=== PATIENT | female | born 1970 | race Caucasian/White ===

== ENCOUNTER 2016-09-29 10:41 | Outpatient (CLI) | payer BC ==
[2016-09-29 13:35] LABS: HEMOGLOBIN A1C 0.39 g/dL
[2016-09-29 13:37] LABS: BASOPHILS # (AUTO) 0.1 10^3/uL (0.0-0.1); BASOPHILS % (AUTO) 1.1 %; EOSINOPHILS # (AUTO) 0.2 10^3/uL (0.0-0.7); EOSINOPHILS % (AUTO) 2.7 %; HCT - HEMATOCRIT 34.9 % (37.0-47.0); HGB - HEMOGLOBIN 11.7 g/dL (12.0-16.0); LYMPHOCYTES % (AUTO) 35.4 %; MEAN CORPUSCULAR HEMOGLOBIN 27.8 pg (27.0-31.0); MEAN CORPUSCULAR HGB CONC 33.4 g/dL (32.0-36.0); MEAN CORPUSCULAR VOLUME 83.1 fL (81.0-99.0); MEAN PLATELET VOLUME 8.8 fL (7.9-10.8); MONOCYTES # (AUTO) 0.4 10^3/uL (0.0-1.0); MONOCYTES % (AUTO) 6.6 %; NEUTROPHILS # (AUTO) 3.1 10^3/uL (1.5-6.6); NEUTROPHILS % (AUTO) 54.2 %; NUCLEATED RED BLOOD CELLS AUTO 0.1 /100WBC; RED CELL DISTRIBUTION WIDTH 14.5 % (12.0-15.0); UNCORRECTED WHITE BLOOD COUNT 5.7 x10^3/uL; WHITE BLOOD COUNT 5.7 x10^3/uL (4.8-10.8)
[2016-09-29 13:50] LABS: ALBUMIN/GLOBULIN RATIO 1.7 (1.0-2.2); BILIRUBIN,TOTAL 0.7 mg/dL (0.2-1.0); BUN - BLOOD UREA NITROGEN 14 mg/dL (6-20); CALCIUM 9.1 mg/dL (8.5-10.3); CARBON DIOXIDE - CO2 27 mmol/L (21-32); CHLORIDE 105 mmol/L (101-111); CHOL/HDL RATIO 3.4 (<4.4); CHOLESTEROL 195 mg/dL; CREATININE 0.8 mg/dL (0.4-1.0); GFR - MDRD 78 (>89); GLUCOSE 90 mg/dL (70-100); HDL CHOLESTEROL 57 mg/dL; LDL/HDL RATIO 2.3 (<4.4); POTASSIUM 4.1 mmol/L (3.5-5.0); SODIUM 140 mmol/L (135-145); TOTAL PROTEIN 7.2 g/dL (6.7-8.2); TRIGLYCERIDES 45 mg/dL; VLDL CHOLESTEROL 9 mg/dL
== END 2016-09-29 10:42 | disposition home or self-care (01) ==
LOC: LAB.WCP 10:41
PROVIDERS: ATTEND Family Medicine
DX: Z00.00 Encounter for general adult medical examination without abnormal findings (principal)
CPT/HCPCS: 36415; 80053; 80061; 83036; 84443; 85025

== ENCOUNTER 2016-10-12 10:35 | Outpatient (CLI) | payer BC ==
--- NOTE | 2016-10-13 15:34 | Mammography Report ---
DIGITAL SCREENING MAMMOGRAM: 10/12/2016 CLINICAL INDICATION: A 45-year-old with history of late childbearing for screening. COMPARISON: 08/2014, 08/2013. TECHNIQUE: Routine CC and MLO projections were obtained of the breasts as well as bilateral laterall y exaggerated craniocaudal views. FINDINGS: Parenchymal tissue within both breasts is extremely dense, which lowers the sensitivity of mammography; however, there are no dominant masses, suspicious microcalcifications, or secondary sig ns of malignancy. In comparison to the previous studies, there are no significant changes. IMPRESSION: No mammographic evidence of malignancy. PLAN: Screening mammography is recommended annually. BI-RADS category 1 - negative. STANDARD QUALIFYING STATEMENTS 1. This examination was reviewed with the aid of Computed-Aided Detection (CAD). 2. A negative or benign imaging report should not delay biopsy if clinically suspicious findings are present. Consider surgical consultation if warranted. More than 5% of cancers are not identified by i maging. 3. Dense breasts may obscure an underlying neoplasm. JOB #: [id number] EXT JOB #:[id number]
== END 2016-10-12 10:36 | disposition home or self-care (01) ==
LOC: DI.N 10:35
PROVIDERS: ATTEND Family Medicine
DX: Z12.31 Encounter for screening mammogram for malignant neoplasm of breast (principal)
CPT/HCPCS: 77067

== ENCOUNTER 2019-01-12 08:00 | Outpatient (CLI) | payer BC ==
[2019-01-12 18:44] LABS: BASOPHILS # (AUTO) 0.1 10^3/uL (0.0-0.1); BASOPHILS % (AUTO) 1.5 %; EOSINOPHILS # (AUTO) 0.2 10^3/uL (0.0-0.7); EOSINOPHILS % (AUTO) 3.4 %; LYMPHOCYTES # (AUTO) 1.6 10^3/uL (1.5-3.5); LYMPHOCYTES % (AUTO) 29.5 %; MEAN CORPUSCULAR HEMOGLOBIN 21.5 pg (27.0-31.0); MEAN CORPUSCULAR HGB CONC 28.9 g/dL (32.0-36.0); MEAN CORPUSCULAR VOLUME 74.5 fL (81.0-99.0); MEAN PLATELET VOLUME 10.3 fL (7.9-10.8); MONOCYTES # (AUTO) 0.4 10^3/uL (0.0-1.0); MONOCYTES % (AUTO) 8.1 %; NEUTROPHILS % (AUTO) 57.1 %; PLT - PLATELET COUNT 464 10^3/uL (130-450); RED BLOOD COUNT 3.72 10^6/uL (4.20-5.40); RED CELL DISTRIBUTION WIDTH 17.4 % (12.0-15.0); WHITE BLOOD COUNT 5.3 x10^3/uL (4.8-10.8)
[2019-01-12 19:01] LABS: ALBUMIN 4.2 g/dL (3.2-5.5); ALBUMIN/GLOBULIN RATIO 1.4 (1.0-2.2); BILIRUBIN,TOTAL 0.6 mg/dL (0.2-1.0); CALCIUM 9.1 mg/dL (8.5-10.3); CREATININE 0.7 mg/dL (0.4-1.0); TOTAL PROTEIN 7.2 g/dL (6.7-8.2)
[2019-01-12 19:29] LABS: PLATELET ESTIMATE, MANUAL INCREASED (>450,000) (NORMAL); PLATELET MORPHOLOGY RARE GIANT PLATELETS (NORMAL)
[2019-01-12 19:39] LABS: FOLLICLE STIMULATING HORMONE 13.02 mIU/mL
== END 2019-01-12 23:59 | disposition home or self-care (01) ==
LOC: LAB.WCP 08:00
PROVIDERS: ATTEND Family Medicine
DX: N92.0 Excessive and frequent menstruation with regular cycle (principal)
CPT/HCPCS: 36415; 80053; 83001; 84443; 85025

== ENCOUNTER 2019-01-21 16:33 | Outpatient (CLI) | payer BC ==
--- NOTE | 2019-01-23 08:40 | Ultrasound Report ---
Reason: MENORRHAGIA Procedure Date: 01/21/2019 Accession Number: [id number] / [id number] Procedure: US - Pelvic w/Transvaginal CPT Code: FULL RESULT: EXAM: PELVIC ULTRASOUND EXAM DATE: 01/21/2019 06:09 PM. CLINICAL HISTORY: MENORRHAGIA. COMPARISON: None. TECHNIQUE: Realtime transabdominal pelvic scan performed to identify the uterus and adnexa and as an overview of other pelvic structures, followed by transvaginal scan to provide greater detail of the uterus and adnexa, with static image documentation. FINDINGS: Uterus: 11.6 x 6.1 x 8.3 cm, volume 306.0 cc. Anteverted position. Heterogeneous. Masses: Numerous masses. A left fundal subserosal lesion with calcifications measures 2.3 x 2.2 x 2.3 cm. A right fundal intramural lesion with cystic changes measures 1.0 x 1.2 x 1.3 cm. An anterior mid uterine intramural to submucosal lesion measuring 2.9 x 2.1 x 2.4 cm. Endometrium: 13 mm. Heterogeneous. Cervix: Nabothian cysts. Right Ovary: 2.6 x 1.3 x 0.9 cm, volume 1.6 cc. Normal echotexture and blood flow. Simple dominant follicle measuring 1.1 x 0.8 x 1.7 cm. Left Ovary: 2.3 x 1.5 x 2.3 cm, volume 4.3 cc. Normal echotexture and blood flow. Free Fluid: Small amount of fluid in the cul-de-sac, extending to the right, a nonspecific finding. Other: None. IMPRESSION: 1. Fibroid uterus. 2. Endometrial thickening; follow-up exam in about 6 weeks is recommended. 3. Small amount of free fluid. RADIA
== END 2019-01-21 16:34 | disposition home or self-care (01) ==
LOC: DI 16:33
PROVIDERS: ATTEND Family Medicine
DX: N92.0 Excessive and frequent menstruation with regular cycle (principal); D25.1 Intramural leiomyoma of uterus; D25.2 Subserosal leiomyoma of uterus; R93.89 Abnormal findings on diagnostic imaging of other specified body structures
CPT/HCPCS: 76830; 76856

== ENCOUNTER 2019-05-09 10:42 | Outpatient (CLI) | payer BC ==
[2019-05-09 11:17] LABS: BASOPHILS # (AUTO) 0.1 10^3/uL (0.0-0.1); BASOPHILS % (AUTO) 1.5 %; EOSINOPHILS # (AUTO) 0.2 10^3/uL (0.0-0.7); EOSINOPHILS % (AUTO) 3.5 %; LYMPHOCYTES # (AUTO) 1.8 10^3/uL (1.5-3.5); LYMPHOCYTES % (AUTO) 33.8 %; MEAN CORPUSCULAR HEMOGLOBIN 27.3 pg (27.0-31.0); MEAN CORPUSCULAR HGB CONC 31.2 g/dL (32.0-36.0); MEAN CORPUSCULAR VOLUME 87.5 fL (81.0-99.0); MEAN PLATELET VOLUME 10.1 fL (7.9-10.8); MONOCYTES # (AUTO) 0.4 10^3/uL (0.0-1.0); MONOCYTES % (AUTO) 7.8 %; NEUTROPHILS # (AUTO) 2.9 10^3/uL (1.5-6.6); PLT - PLATELET COUNT 370 10^3/uL (130-450); RED CELL DISTRIBUTION WIDTH 17.1 % (12.0-15.0); WHITE BLOOD COUNT 5.4 x10^3/uL (4.8-10.8)
[2019-05-09 11:18] LABS: HCG UR QUAL NEGATIVE
[2019-05-09 11:34] LABS: CREATININE 0.8 mg/dL (0.4-1.0)
== END 2019-05-09 10:43 | disposition home or self-care (01) ==
LOC: LAB 10:42
PROVIDERS: ATTEND Obstetrics & Gynecology
DX: Z01.812 Encounter for preprocedural laboratory examination (principal); D25.9 Leiomyoma of uterus, unspecified; D64.9 Anemia, unspecified
CPT/HCPCS: 36415; 80048; 81025; 85025; 86850; 86900; 86901; 86920

== ENCOUNTER 2019-05-10 09:59 | Day surgery (SDC) | payer BC ==
[2019-05-10] MEDS ORDERED: PROPOFOL 200 MG/20 ML VIAL IVP ONE (10:00)
[2019-05-10] MEDS ORDERED: LIDOCAINE-MPF 2% 5 ML VIAL IM ONE (10:00)
[2019-05-10] MEDS ORDERED: GLYCOPYRROLATE 1 MG/5 ML VIAL IVP ONE (10:00)
[2019-05-10] MEDS ORDERED: NEOSTIGMINE 1 MG/1 ML 10 ML MDV IVP ONE (10:00)
[2019-05-10] MEDS ORDERED: fentaNYL 250 MCG/5 ML VIAL IVP ONE (10:00)
[2019-05-10] MEDS ORDERED: HYDROmorphone 1 MG/ML SYRINGE IVP ONE (10:00)
[2019-05-10] MEDS ORDERED: MIDAZOLAM 2 MG/2 ML VIAL IVP ONE (10:00)
[2019-05-10] MEDS ORDERED: DEXAMETHASONE 4 MG/ML VIAL IVP ONE (10:00)
[2019-05-10] MEDS ORDERED: ROCURONIUM 50 MG/5 ML VIAL IVP ONE (10:00)
[2019-05-10] MEDS ORDERED: LACTATED RINGERS 1,000 ML IV ONE ×2 (10:13→15:11)
[2019-05-10] MEDS ORDERED: CEFAZOLIN SODIUM IN 0.9 % NACL 2 GM/100 ML BAG IV ONE (10:30)
--- NOTE | 2019-05-10 11:31 | ANESTHESIA ---
Pre-Anesthesia VS, & Labs - Diagnosis Fibroid uterus, anemia - Procedure LAVH with bilateral salpingectomy, cysto Vital Signs: Temp Pulse Resp BP Pulse Ox 36.6 C 68 12 146/98 H 100 05/10/19 10:20 05/10/19 10:20 05/10/19 10:20 05/10/19 10:20 05/10/19 10:20 Height 5 ft 6 in Weight (kg) 90.8 kg - NPO >8 hours - Is Patient ?: No - Lab Results Current Lab Results: Lab results reviewed: Yes Home Medications and Allergies Home Medications: Ambulatory Orders Albuterol Sulfate [Proair Hfa Inhaler] 1 - 2 puffs INH Q4H PRN 05/09/19 Ferrous Sulfate 325 mg PO BID 05/09/19 Zicam 1 ea PO DAILY 05/09/19 Albuterol Sulfate [Proair Hfa Inhaler] 1 - 2 puffs INH Q4H PRN 05/09/19 Ferrous Sulfate 325 mg PO BID 05/09/19 Zicam 1 ea PO DAILY 05/09/19 Allergies/Adverse Reactions: Allergies Allergy/AdvReac Type Severity Reaction Status Date / Time shellfish derived Allergy Anaphylaxis Verified 05/09/19 10:30 Anes History & Medical History - Anesthetic History Family history of Anesthesia Complications: Denies Family history of Malignant Hyperthermia: Denies - Medical History Cardiovascular: reports: None Pulmonary: reports: Asthma (last albuterol use was in january) Gastrointestinal: reports: None Urinary: reports: None Neuro: reports: None Musculoskeletal: reports: None Endocrine/Autoimmune: reports: None Blood Disorders: reports: Anemia (history of anemia) Skin: reports: Other Smoking Status: Never smoker Psychosocial: reports: No issues indicated - Surgical History Gynecologic: section Exam General: Alert, Oriented x3, Cooperative, No acute distress Dental: WNL Mouth Openin Fingerbreadth Neck Mobility: Normal Mallampati classification: II Thyromental Distance: greater than 6 cm Respiratory: Lungs clear, Normal breath sounds, No respiratory distress, No accessory muscle use Cardiovascular: Regular rate, Normal S1, Normal S2, No murmurs Mental/Cognitive Status: Alert/Oriented X3, Normal for patient Plan Anesthesia Type: General Consent for Procedure(s) Verified and Reviewed: Yes Code Status: Attempt Resuscitation ASA classification: 2-Mild systemic disease Is this case an emergency?: No
[2019-05-10] MEDS ORDERED: SCOPOLAMINE PATCH TOP ONE (11:43)
[2019-05-10] MEDS ORDERED: LIDOCAINE MPF 2%-EPI 1:200000 20 ML VIAL ONE (11:59)
[2019-05-10] MEDS ORDERED: BUPIVACAINE 0.5% PF 30 ML VIAL ONE (11:59)
[2019-05-10] MEDS ORDERED: LIDOCAINE 1%-EPI 1:100000 20 ML MDV SUBQ ONE ×2 (14:06)
[2019-05-10] MEDS ORDERED: BUPIVACAINE 0.5% PF 30 ML VIAL INFIL ONE ×2 (14:07)
[2019-05-10] MEDS ORDERED: ONDANSETRON 4 MG/2 ML VIAL IVP PRN (15:50)
--- NOTE | 2019-05-10 15:54 | OPERATIVE REPORT ---
Operative Report - General Procedure Date: 05/10/19 Planned Procedure: TLH with BS and cysto Pre-Op Diagnosis: menorrhagia, fibroid uterus Procedure Performed: TLH with BS and cysto Post Op Diagnosis: Same - Procedure Note Primary Surgeon: Felix Galindo MD Secondary Surgeon: Toyin Iglesias MD Anesthesia Provider: Tomás Burton CRNA Anesthesia Technique: General ET tube Pathology: Uterus with both ovaries Weight 280 IV Fluids (mL): 1,600 Estimated Blood Loss (mL): 100 Urine Output (mL): 700 Indications: menorrhagia with fibroid uterus Findings: Large 280 gm fibriod uterus Complications: None
[2019-05-10] MEDS ORDERED: KETOROLAC 15 MG/ML VIAL ONE (16:16)
[2019-05-10] MEDS: KETOROLAC 30 MG/ML VIAL IVP PRN ×2 (16:19→22:25)
[2019-05-10] MEDS ORDERED: ONDANSETRON 4 MG/2 ML VIAL ONE (16:21)
--- NOTE | 2019-05-10 18:32 | OPERATIVE REPORT ---
DATE OF SERVICE: 05/10/2019 Physician: Felix Galindo MD PREOPERATIVE DIAGNOSIS: Fibroid uterus, menorrhagia, history of anemia. POSTOPERATIVE DIAGNOSES: Fibroid uterus, menorrhagia, history of anemia. PROCEDURE: Total laparoscopic hysterectomy with bilateral salpingectomy and cystoscopy. SURGEON: Felix Galindo MD RETIREMENT MANAGER: Toyin Iglesias MD ANESTHESIA: Tomás Burton CRNA. ANESTHETIC: General via endotracheal tube. IV FLUIDS: 1600 mL URINE OUTPUT: 700 mL ESTIMATED BLOOD LOSS: 100 mL FINDINGS: Upon entering the abdominal cavity, there was evidence of an irregular large uterus. The tubes and ovaries appeared to be normal. A cystoscopy was performed at the end of the case, there wa s evidence of good urine flow through both ureteral jets. DESCRIPTION OF PROCEDURE: Following adequate endotracheal anesthesia, patient was placed in dorsal l ithotomy position in Hector stirrups. At this point, she was prepped and draped in the usual fashion. A pelvic examination was performed prior to this, at which time the uterus was noted to be irregula r contour. Roughly 12-14 week size with irregularities, particularly on the right cornual area. At this point, a timeout was performed, at which time the concerns were addressed, the fact that she had never had any children vaginally, and the concerns about removing the uterus through the vagina was reviewed. A speculum was placed in the vagina, cervix visualized, grasped with a single-tooth tenacu lum. The uterus was then sounded to 9 cm and then dilated up to 8 mm. A uterine manipulator was alize jong in the cervical canal. Care was to make sure that the ring extended all the way to the fornices. At this point, the carbon coater machine operator's gloves were changed. Stab wound was made in the subumbilical area. Following local anesthesia with 0.25% Marcaine with 1% lidocaine and epinephrine, a trocar was placed and with one pass. There was no evidence of any injury at site of insertion. Two additional ports were placed, both in the left and right lower quadrants. Following local anesthesia with 0.25% Lance ine, skin incision with a #11 blade and 5 mm ports were placed under the first pass. The uterus was inspected. The patient was placed in Trendelenburg. There was evidence of a cornual fibroid on the right hand side. There were also irregularities of contour suggestive of multiple fibroids. The kailee diego was enlarged also. The right fallopian tube was grasped and then utilizing the LigaSure was caut erized and transected all the way to the cornua. Then, the uteroovarian ligament was cauterized and transected, as well as the round ligament being cauterized and transected. The broad ligament was th en cauterized, transected and then opened, and the anterior leaf was brought down to the internal os of the cervix and then come fpc across the cervix. The posterior leaf was also cauterized and tr ansected. The uterine vessels were identified, cauterized and transected with LigaSure. At this edwar e, attention was turned to the left adnexa. The fallopian tube was grasped. The mesosalpinx was cau terized and transected with the LigaSure all the way to the cornu, and then the uteroovarian ligament was cauterized and transected, as well as the round ligament. The anterior leaf of the broad ligame nt was opened, carried down to the internal os of the cervix and then brought across the lower uterin e segment. The bladder had 200 mL of sterile saline inserted to try and help delineate the edges of the bladder. At this point, following assurance that this was not in the field, the bladder flap was then developed. The uterine vessels on the left hand side were identified, cauterized and transecte d. The anvil of the uterine manipulator was palpated, and then utilizing Harmonic scalpel the cervix was amputated from the apex of the vagina. Care was taken to try and stay as close to the cervix as possible to minimize any foreshortening of the vagina. At this point, the uterus was then grasped a nd brought down into the vagina. It was grasped with a single-tooth tenaculum and then with a double tooth tenaculum. Following some difficulty, it was brought down and a fibroid was noted in the righ t cornu. This was enucleated and at this point the uterus was able to be delivered with ease. An As epto bulb was then placed in the vagina to maintain a pneumoperitoneum. The pelvis was irrigated wit h sterile saline. There was no evidence of any bleeding. Care was taken to inspect both pedicles, a s well as the vagina. The vagina was then closed using an 0 V-Loc suture traversing all the way acro ss. Care was taken to try and avoid puncturing the bladder, but getting a large bite so that there w ould be decreased risk of this opening. This was traversed all the way across the apex of the vagina and then brought back. This was trimmed and then the area was inspected. No further bleeding was n oted. So at this point, the right lower quadrant port, which had been enlarged to fit a 12 mm trocar , was closed utilizing a Kranthi-Vane. At this point, a cystoscopy was performed and there was ev idence of good flow from both ureteral orifices. There was no evidence of any injury in the entire b ladder cavity. The incision was closed utilizing 4-0 Monocryl subcuticular and then Dermabond was pl aced. The patient tolerated the procedure well and was taken to recovery in stable condition. Throughout this procedure, Dr. Iglesias was galo to providing retraction, as well as dissection and ca uterization of vessels. She was galo to the performance of this operation. TD: 05/10/2019 16:07
[2019-05-10] MEDS: oxyCODONE 5 MG TABLET PO PRN ×2 (18:45→22:44)
[2019-05-10] MEDS ORDERED: polyethylene glycoL 3350 17 GM PACKET PO PRN (20:00)
[2019-05-11] MEDS ORDERED: SODIUM CHLORIDE FLUSH 0.9% 10 ML SYRINGE ONE (07:53)
[2019-05-11] MEDS: KETOROLAC 30 MG/ML VIAL IVP PRN (07:53)
[2019-05-11] MEDS: oxyCODONE 5 MG TABLET PO PRN (11:09)
[2019-05-11 11:12] VITALS: BP 115/58
== END 2019-05-11 11:30 | disposition home or self-care (01) ==
LOC: SDS 09:59 → MS3 16:50 → SDS 05-11 11:30
PROVIDERS: ATTEND Obstetrics & Gynecology
PROC: 0UT74ZZ Resection of Bilateral Fallopian Tubes, Percutaneous Endoscopic Approach (ICD-10-PCS; 2019-05-10)
PROC: 0UT94ZZ Resection of Uterus, Percutaneous Endoscopic Approach (ICD-10-PCS; principal; 2019-05-10 11:30)
DX: N92.0 Excessive and frequent menstruation with regular cycle (principal); D25.9 Leiomyoma of uterus, unspecified; D64.9 Anemia, unspecified; J45.909 Unspecified asthma, uncomplicated
CPT/HCPCS: 58573; A9270; J0690; J1170; J3010; J3490; J7120

== ENCOUNTER 2020-04-17 15:45 | Outpatient (CLI) | payer BC | END 2020-04-17 15:46 | disposition home or self-care (01) | LOC: LAB 15:45 | PROVIDERS: ATTEND Surgery | DX: Z01.812 Encounter for preprocedural laboratory examination (principal); C50.911 Malignant neoplasm of unspecified site of right female breast; Z20.828 Contact with and (suspected) exposure to other viral communicable diseases ==

== ENCOUNTER 2020-04-22 07:57 | Day surgery (SDC) | payer BC ==
[~2020-04-22 07:57] MED LIST: BUPIVACAINE 0.5%-EPI 1:200000 PF 30 ML VIAL ONE; LIDOCAINE 1% 50 ML MDV ONE; ceFAZolin 2 GM/50 ML 2 GM/50 ML BAG IV ONE
[2020-04-22] MEDS ORDERED: LACTATED RINGERS 1,000 ML IV ONE (08:19)
[2020-04-22] MEDS ORDERED: MORPHINE 2 MG/ML CARPUJECT IVP PRN (09:12)
[2020-04-22] MEDS ORDERED: NALOXONE 0.4 MG/ML VIAL IVP PRN (09:12)
[2020-04-22] MEDS ORDERED: METOCLOPRAMIDE 10 MG/2 ML VIAL IVP PRN (09:12)
[2020-04-22] MEDS ORDERED: fentaNYL 100 MCG/2 ML VIAL IVP PRN (09:12)
[2020-04-22] MEDS ORDERED: ONDANSETRON 4 MG/2 ML VIAL IVP PRN (09:12)
[2020-04-22] MEDS ORDERED: ATROPINE ABBOJECT 1 MG/10 ML SYRINGE IVP PRN (09:12)
[2020-04-22] MEDS ORDERED: HYDROmorphone 0.5 MG/0.5 ML SYRINGE IVP PRN (09:12)
[2020-04-22] MEDS ORDERED: ePHEDrine 50 MG/ML VIAL IVP PRN (09:12)
--- NOTE | 2020-04-22 09:12 | ANESTHESIA ---
Pre-Anesthesia VS, & Labs - Diagnosis right breast cancer - Procedure subclavian power portacath placement Vital Signs: Temp Pulse Resp BP Pulse Ox 36.6 C 80 16 142/94 H 100 04/22/20 08:10 04/22/20 08:10 04/22/20 08:10 04/22/20 08:10 04/22/20 08:10 Height: 5 ft 6 in Weight (kg): 89 kg Body Mass Index: 31.6 BMI Classification: Obese - NPO >8 hours - Is Patient ?: No - Lab Results Lab results reviewed: Yes Home Medications and Allergies Albuterol Sulfate [Proair Hfa Inhaler] 1 - 2 puffs INH Q4H PRN 05/09/19 Allergies/Adverse Reactions: Allergies Allergy/AdvReac Type Severity Reaction Status Date / Time shellfish derived Allergy Anaphylaxis Verified 05/09/19 10:30 Anes History & Medical History - Anesthetic History Anesthesia Complications: reports: No previous complications Family history of Anesthesia Complications: Denies Family history of Malignant Hyperthermia: Denies - Medical History Cardiovascular: reports: None Pulmonary: reports: Asthma Gastrointestinal: reports: None Urinary: reports: None Neuro: reports: None Musculoskeletal: reports: None Endocrine/Autoimmune: reports: None Blood Disorders: reports: Anemia (history of anemia) Skin: reports: Other Smoking Status: Never smoker - Surgical History Gynecologic: section Exam General: Alert, Oriented x3, Cooperative, No acute distress Dental: WNL Mouth Openin Fingerbreadth Respiratory: Lungs clear, Normal breath sounds, No respiratory distress, No accessory muscle use Cardiovascular: Regular rate, Normal S1, Normal S2, No murmurs Plan Anesthesia Type: MAC Consent for Procedure(s) Verified and Reviewed: Yes Code Status: Attempt Resuscitation ASA classification: 2-Mild systemic disease Is this case an emergency?: No
[2020-04-22] MEDS ORDERED: LACTATED RINGERS 1,000 ML IV SCH (10:00)
[2020-04-22] MEDS ORDERED: fentaNYL 100 MCG/2 ML VIAL ONE (10:18)
[2020-04-22] MEDS ORDERED: MIDAZOLAM 2 MG/2 ML VIAL ONE (10:18)
[2020-04-22] MEDS ORDERED: LIDOCAINE-MPF 2% 5 ML VIAL ONE (10:21)
[2020-04-22] MEDS ORDERED: PROPOFOL 200 MG/20 ML VIAL IVP ONE ×2 (10:21→10:57)
[2020-04-22] MEDS ORDERED: LIDOCAINE 1% 50 ML MDV SUBQ ONE (10:28)
[2020-04-22] MEDS ORDERED: BUPIVACAINE 0.5%-EPI 1:200000 PF 30 ML VIAL SUBQ ONE (10:29)
[2020-04-22] MEDS ORDERED: LACTATED RINGERS 500 ML IV ONE (10:53)
--- NOTE | 2020-04-22 10:53 | OPERATIVE REPORT ---
Operative Report - General Procedure Date: 04/22/20 Planned Procedure: Locally advanced right breast cancer Pre-Op Diagnosis: Locally advanced right breast cancer Procedure Performed: Left subclavian power port Post Op Diagnosis: Locally advance right breast cancer - Procedure Note Primary Surgeon: Maki Anesthesia Provider: LUC Chopra Anesthesia Technique: MAC Estimated Blood Loss (mL): 10 Indications: Facilitation of chemotherapy Findings: Port in good position in the superior vena cava Complications: None apparent - Other Other Information/Narrative: After obtaining informed consent, the patient is brought to the operating room and placed in supine position on the operating table. Following successful induction of sedation with monitored anesthesia care and appropriate padding of all bony prominences, the left chest and neck were prepped and draped in the standard surgical fashion. A timeout was held per scope protocol. All elements of the surgical safety checklist were followed before, during, and after the procedure. Following infiltration with local anesthetic to create a field block, the left subclavian vein was accessed in the deltopectoral groove. The J-wire was gently placed into the vein. Fluoroscopy was used to confirm the position of the wire and in the subclavian vein. We anesthetized the existing healed scar in the area around it for placement of the port itself. An incision was created here and carried down through the skin and subcutaneous tissue. A pocket was created with blunt dissection. The port tubing was attached to the tunneling device and passed from the access site of the vein into the pocket. It was trimmed to an appropriate length and the port attached. The port was sewn into place in the pocket. The dilator and introducer were then passed over the J-wire that was in the subclavian vein. The J-wire and dilator were removed leaving only the introducer. The tubing was then passed through the introducer and the introducer cracked and removed per assembler product's directions. The port was then checked for function and flushed and liane easily. Additional local anesthetic was applied to the chest wall. The port pocket was closed with interrupted Vicryl sutures and Monocryl stitches were placed in both skin incision sites. All sponge, needle, and instrument counts were correct at the conclusion of the case. Chest x-ray in the postanesthesia care unit revealed the port in good position in the superior vena cava without evidence of pneumothorax.
--- NOTE | 2020-04-22 11:29 | XRAY Report ---
PROCEDURE: OR Port-A-Cath INDICATIONS: PORT PLACEMENT TECHNIQUE: Single intraoperative image COMPARISON: None. FINDINGS: Single intraoperative images demonstrating guidewire projecting in the superior vena cava and below t he cavoatrial junction. Reviewed by: Arash Brown MD on 04/22/2020 11:27 AM [facility] Approved by: Arash Brown MD on 04/22/2020 11:27 AM [facility] Station ID: [id number]
--- NOTE | 2020-04-22 11:53 | XRAY Report ---
PROCEDURE: Chest for Line Placement INDICATIONS: Port TECHNIQUE: One view of the chest was acquired. COMPARISON: None FINDINGS: Surgical changes and devices: Left chest wall Port-A-Cath tip is in SVC.. Lungs and pleura: No pleural effusions or pneumothorax. Lungs are clear. Mediastinum: Mediastinal contours appear normal. Heart size is normal. Bones and chest wall: No suspicious bony lesions. Overlying soft tissues appear unremarkable. IMPRESSION: Left chest wall Port-A-Cath tip is in SVC. No acute cardiopulmonary pathology. Reviewed by: Eitan Izaguirre MD on 04/22/2020 11:52 AM [facility] Approved by: Eitan Izaguirre MD on 04/22/2020 11:52 AM [facility] Station ID: [id number]
[2020-04-22 12:35] VITALS: BP 122/72
--- NOTE | 2020-04-22 13:00 | ANESTHESIA POST OP EVALUATION ---
Anesthesia Post Eval - Post Anesthesia Eval Vitals: Last Vital Signs Temp 37.5 C 04/22/20 10:59 Pulse 80 04/22/20 12:00 Resp 16 04/22/20 12:00 BP 122/72 04/22/20 12:00 Pulse Ox 100 04/22/20 12:00 CV Function Including HR & BP: positive: Stable Pain Control: positive: Satisfactory Nausea & Vomiting: positive: Negative Mental Status: positive: Baseline Respiratory Status: Airway Patent Hydration Status: Satisfactory Anesthesia Complications: positive: None
== END 2020-04-22 07:58 | disposition home or self-care (01) ==
LOC: SDS 07:57
PROVIDERS: ATTEND Surgery
DX: C50.911 Malignant neoplasm of unspecified site of right female breast (principal); J45.909 Unspecified asthma, uncomplicated; E66.9 Obesity, unspecified; Z68.31 Body mass index [BMI] 31.0-31.9, adult
CPT/HCPCS: 36561; 71045; C1788; J0690; J7120

== ENCOUNTER 2020-04-30 13:32 | Outpatient (CLI) | payer BC ==
[2020-04-30] MEDS ORDERED: IOVERSOL 320 50 ML VIAL ONE (13:46)
[2020-04-30] MEDS ORDERED: IOVERSOL 320 100 ML VIAL IVP ONE ×2 (13:46→15:10)
[2020-04-30] MEDS ORDERED: IOVERSOL 320 50 ML VIAL PO ONE (15:10)
--- NOTE | 2020-04-30 15:39 | CT Report ---
PROCEDURE: CHEST W INDICATIONS: BREAST CA CONTRAST: IV CONTRAST: Optiray 320 ml: 100 PO CONTRAST: Optiray 320 ml50 TECHNIQUE: After the administration of intravenous contrast, 5 mm thick sections acquired from the pulmonary api mely to the posterior costophrenic angles. 7 mm thick coronal MIP reformats were acquired. For radia tion dose reduction, the following was used: automated exposure control, adjustment of mA and/or kV according to patient size. COMPARISON: None. FINDINGS: Image quality: Excellent. Lungs and pleura: No suspicious pulmonary nodule or mass. No pleural effusion or other significant pl eural finding. Mediastinum: Normal heart size. No threshold enlarged mediastinal or hilar lymph node by CT size crit eria. Left chest wall central venous port catheter terminates in the SVC. Bones and chest wall: Ill-defined hypoattenuating region within the right breast is suspicious for ma lignancy. Thickening of the skin and nipple areolar complex may represent involvement versus radiatio n or inflammatory change, versus postprocedural changes. Several partial enlarged right axillary lymp h nodes are suspicious for metastatic disease. There is also a right supraclavicular lymphadenopathy partially visualized. IMPRESSION: Ill-defined region of hyperattenuation in the right breast is consistent with a malignant mass. This would be better assessed with MRI, if not already performed. Thickened appearance of the right breast skin and nipple areolar complex is suspicious for malignant involvement, although other etiologies such as postprocedural or radiation change could cause a simil ar appearance. Right axillary and supraclavicular lymphadenopathy consistent with metastatic disease. Reviewed by: Celestino Mckenzie MD on 04/30/2020 3:38 PM PST Approved by: Celestino Mckenzie MD on 04/30/2020 3:38 PM PST Station ID: [id number]
--- NOTE | 2020-04-30 15:48 | CT Report ---
PROCEDURE: Abdomen/Pelvis W INDICATIONS: BREAST CA CONTRAST: IV CONTRAST: Optiray 320 ml: 100 PO CONTRAST: Optiray 320 ml50 TECHNIQUE: After the administration of intravenous contrast, 5 mm thick sections acquired from the diaphragms to the symphysis. 5 mm thick coronal and sagittal reformats were acquired. For radiation dose reducti on, the following was used: automated exposure control, adjustment of mA and/or kV according to ananth ent size. COMPARISON: None. FINDINGS: Image quality: Excellent. ABDOMEN: Lung bases: Lung bases are clear. Heart size is normal. Solid organs: Liver and spleen are normal in size and enhancement. Gallbladder is unremarkable. Bi liary system is non dilated. Pancreas enhances normally. No adrenal nodules. Kidneys demonstrate n ormal size and enhancement, without hydronephrosis. Peritoneum and bowel: Bowel loops demonstrate normal wall thickness and caliber. No free fluid or a ir. Nodes and vessels: No retroperitoneal or mesenteric adenopathy by size criteria. Aorta and inferior vena cava are normal in size. Miscellaneous: No ventral hernias. PELVIS: Genitourinary: Bladder wall thickness is normal. Miscellaneous: No inguinal hernias or adenopathy. Bones: No suspicious bony lesions. No vertebral body compression fractures. IMPRESSION: No evidence of metastatic disease in the abdomen or pelvis. Please see separately dictat ed report for CT of the chest for description of probable metastases in the chest. Reviewed by: Celestino Mckenzie MD on 04/30/2020 3:46 PM PST Approved by: Celestino Mckenzie MD on 04/30/2020 3:46 PM PST Station ID: [id number]
== END 2020-04-30 13:33 | disposition home or self-care (01) ==
LOC: DI 13:32
PROVIDERS: ATTEND Internal Medicine Hematology & Oncology
DX: C50.911 Malignant neoplasm of unspecified site of right female breast (principal); R59.0 Localized enlarged lymph nodes
CPT/HCPCS: 71260; 74177; Q9967

== ENCOUNTER 2020-05-06 08:38 | Outpatient (CLI) | payer BC ==
--- NOTE | 2020-05-14 13:32 | Nuclear Medicine Report ---
PROCEDURE: Bone Whole Body INDICATIONS: BREAST CA RADIOPHARMACEUTICAL: 27.3 mCi Tc-99m MDP IV. TECHNIQUE: Delayed whole-body scintigrams were obtained approximately 3-4 hours after intravenous injection of r adiotracer. Anterior and posterior views were acquired from vertex to feet. Additional left and rig ht oblique views of the skull and cervical spine were obtained. COMPARISON: None available. FINDINGS: Foci of increased uptake are noted in maxilla, most likely related to dental disease. No a bnormal uptake in skull, scapulae, clavicles, ribs, bony pelvis and visualized shafts of the long bon es. Mildly increased activity in the thoracic and lumbar spine are most likely degenerative in nature . Degenerative joint disease in multiple peripheral joints are noted involving shoulders, elbows and hips. IMPRESSION: No scintigraphic findings to suggest osseous metastasis. The result was given to Dr. Ronquillo's nurse Zuleika. Reviewed by: Michael Saldana MD on 05/14/2020 1:31 PM PST Approved by: Michael Saldana MD on 05/14/2020 1:31 PM PST Station ID: [id number]
== END 2020-05-06 08:39 | disposition home or self-care (01) ==
LOC: DI 08:38
PROVIDERS: ATTEND Internal Medicine Hematology & Oncology
DX: C50.911 Malignant neoplasm of unspecified site of right female breast (principal)
CPT/HCPCS: 78306

== ENCOUNTER 2020-07-18 07:22 | Outpatient (CLI) | payer BC | END 2020-07-18 07:23 | disposition home or self-care (01) | LOC: DI 07:22 | PROVIDERS: ATTEND Internal Medicine Hematology & Oncology | DX: C50.811 Malignant neoplasm of overlapping sites of right female breast (principal) | CPT/HCPCS: 93306 ==

== ENCOUNTER 2020-10-07 14:33 | Outpatient (CLI) | payer BC ==
--- NOTE | 2020-10-09 14:14 | Ultrasound Report ---
LIMITED ULTRASOUND OF RIGHT BREAST AND AXILLA: 10/07/2020 CLINICAL: Focal right breast pain and swelling. History right breast cancer. Comparison is made to exams dated: 04/15/2020 ultrasound biopsy, 04/15/2020 ultrasound biopsy, 04/15 ultrasound biopsy, 04/15/2020 mammogram, 04/03/2020 breast MRI, and 03/28/2020 ultrasound - [facility]. Color flow and real-time ultrasound of the right breast 8-12 o'clock, and axilla regions were perform ed on the areas of interest. Diffusely heterogeneous hypoechoic ill defined soft tissue redemonstrated in the upper outer quadrant of the right breast. There is a 2.6 cm x 1.6 cm x 2.7 cm oval mass with indistinct margins in the right breast at 11 o'oliver ck middle depth. This oval mass is hypoechoic. This abnormality appears slightly increased in size. Color flow imaging demonstrates that there is an adjacent vascularity. This likely corresponds to the previously biopsied mass. There also is a 1.2 cm x 0.8 cm x 1.1 cm oval mass with an indistinct margin in the right breast at 8 o'clock middle depth. This oval mass is hypoechoic. Color flow imaging demonstrates that there is vascularity present. Additionally, there are a few enlarged right axillary lymph nodes redemonstrated. These include a lym ph node with eccentric cortical thickening in the right axilla with the cortex measuring up to 0.8 cm . This lymph node displays a fatty hilum. This abnormality is increased in size. Color flow imagin g demonstrates that there is vascularity present. IMPRESSION: KNOWN BIOPSY PROVEN MALIGNANCY The 2.6 cm x 1.6 cm x 2.7 cm oval mass in the right breast at 11 o'clock middle depth is a known biop sy positive for malignancy. The 1.2 cm x 0.8 cm x 1.1 cm oval mass in the right breast at 8 o'clock middle depth likely correspon ds to additional areas of probable malignancy in the right breast seen on prior MRI. The lymph nodes with eccentric cortical thickening in the right axilla are consistent with known biop sy proven metastatic disease. The overall findings suggest progression of disease. However, evaluation of the extent of disease is limited on ultrasound. A followup-MRI is recommended to evaluate response to therapy if clinically in dicated. This exam was interpreted at Station ID: [id number]. Electronically Signed By: Darci Peters M.D. ddp/:10/09/2020 14:03:09 Ultrasound BI-RADS: 6 Known biopsy proven malignancy BI-RADS CATEGORY: (6) - 6 Unspecified - other recall n/a LATERALITY: (B)
== END 2020-10-07 14:34 | disposition home or self-care (01) ==
LOC: DI 14:33
PROVIDERS: ATTEND Internal Medicine Hematology & Oncology
DX: C50.811 Malignant neoplasm of overlapping sites of right female breast (principal); N63.13 Unspecified lump in the right breast, lower outer quadrant; R59.0 Localized enlarged lymph nodes

== ENCOUNTER 2020-10-22 07:43 | Outpatient (CLI) | payer BC ==
[2020-10-22] MEDS ORDERED: IOPAMIDOL-300 50 ML VIAL ONE (07:49)
[2020-10-22] MEDS ORDERED: IOVERSOL 320 100 ML VIAL IVP ONE ×2 (07:49→09:06)
[2020-10-22] MEDS ORDERED: IOPAMIDOL-300 50 ML VIAL PO ONE (09:06)
--- NOTE | 2020-10-22 09:28 | CT Report ---
PROCEDURE: CHEST W INDICATIONS: BREAST CA CONTRAST: IV CONTRAST: Optiray 320 ml: 100 PO CONTRAST: Isovue 300 ml50 TECHNIQUE: After the administration of intravenous contrast, 5 mm thick sections acquired from the pulmonary api mely to the posterior costophrenic angles. 7 mm thick coronal MIP reformats were acquired. For radia tion dose reduction, the following was used: automated exposure control, adjustment of mA and/or kV according to patient size. COMPARISON: Same day CT abdomen and pelvis. Right breast and axillary ultrasound 10/07/2020. CT chest 04/30/2020. Breast MRI 04/03/2020. FINDINGS: Image quality: Excellent. Lungs and pleura: No mass or suspicious pulmonary nodule. The lungs are unchanged. Left lower lobe p ulmonary nodule measuring 0.2 cm, (3/218), unchanged. No acute air space opacities. No pleural effus ions or pneumothorax. Central and peripheral airways are patent and normal in caliber. Mediastinum: Left-sided port with the catheter tip in the middle third of the SVC. Heart size is nor mal. No pericardial effusion. No mediastinal or hilar adenopathy by size criteria. Thoracic aorta and central pulmonary arteries are normal in size. Esophagus is normal in caliber. No hiatal hernia . Bones and chest wall: Heterogeneous enhancement of the right breast compared to the left. Right danna st masses are difficult to measure on CT. Right breast biopsy clips. Right breast skin thickening. Enlarged right axillary lymph nodes. For example: -Lateral node with biopsy clip with a short axis diameter of 0.8 cm, (2/19), previously 1.3 cm. -Superior-medial node measuring 1.2 cm, (2/13), previously 1.3 cm. -No internal mammary nodes seen. No enlarging nodes seen. No suspicious bony lesions. No vertebral body compression fractures. No axillary or supraclavicular adenopathy by size criteria. The thyroid is normal in size and there are no incidental findings. Abdomen: Visualized upper abdominal solid organs appear normal. Upper abdominal bowel loops are nor mal in caliber. IMPRESSION: 1. No worsening disease identified in the chest. 2. Heterogeneous right breast masses. 3. Right axillary adenopathy. One of the nodes appears decreased in size. Reviewed by: Lamberto Murray MD on 10/22/2020 9:27 AM PDT Approved by: Lamberto Murray MD on 10/22/2020 9:27 AM PDT Station ID: [id number]
--- NOTE | 2020-10-22 09:33 | CT Report ---
PROCEDURE: Abdomen/Pelvis W INDICATIONS: BREAST CA CONTRAST: IV CONTRAST: Optiray 320 ml: 100 PO CONTRAST: Isovue 300 ml50 TECHNIQUE: After the administration of oral and intravenous contrast, 5 mm thick sections acquired from the diap hragms to the symphysis. 5 mm thick coronal and sagittal reformats were acquired. For radiation dos e reduction, the following was used: automated exposure control, adjustment of mA and/or kV accordin g to patient size. COMPARISON: Same day CT chest. CT abdomen and pelvis 04/30/2020. FINDINGS: Image quality: Excellent. ABDOMEN: Lung bases: Lung bases are clear. Heart size is normal. Solid organs: Liver and spleen are normal in size and enhancement. No focal hepatic lesion. Gallblad ellen is unremarkable. Biliary system is non dilated. Pancreas enhances normally. No adrenal nodules . Kidneys demonstrate normal size and enhancement, without hydronephrosis. Peritoneum and bowel: Bowel loops demonstrate normal wall thickness and caliber. Somewhat prominent stool in the right and transverse colon. No free fluid or air. Nodes and vessels: No retroperitoneal or mesenteric adenopathy by size criteria. Aorta and inferior vena cava are normal in size. Miscellaneous: No ventral hernias. PELVIS: Genitourinary: Bladder is unremarkable. Uterus is absent. Miscellaneous: No inguinal hernias or adenopathy. Bones: No suspicious bony lesions. No vertebral body compression fractures. IMPRESSION: No metastatic disease identified in the abdomen or pelvis. Reviewed by: Lamberto Murray MD on 10/22/2020 9:32 AM PDT Approved by: Lamberto Murray MD on 10/22/2020 9:32 AM PDT Station ID: [id number]
== END 2020-10-22 07:44 | disposition home or self-care (01) ==
LOC: DI 07:43
PROVIDERS: ATTEND Internal Medicine Hematology & Oncology
DX: C50.811 Malignant neoplasm of overlapping sites of right female breast (principal)
CPT/HCPCS: 71260; 74177; Q9967

== ENCOUNTER 2020-10-24 10:00 | Outpatient (CLI) | payer BC | END 2020-10-24 23:59 | disposition home or self-care (01) | LOC: COV 10:00 | PROVIDERS: ATTEND Surgery | DX: Z01.812 Encounter for preprocedural laboratory examination (principal); C50.911 Malignant neoplasm of unspecified site of right female breast; Z20.822 Contact with and (suspected) exposure to COVID-19 ==

== ENCOUNTER 2020-10-28 11:27 | Day surgery (SDC) | payer BC ==
[~2020-10-28 11:27] MED LIST changes: -BUPIVACAINE 0.5%-EPI 1:200000 PF 30 ML VIAL ONE; -LIDOCAINE 1% 50 ML MDV ONE
[2020-10-28] MEDS ORDERED: LACTATED RINGERS 1,000 ML IV ONE ×2 (12:10→14:56)
[2020-10-28] MEDS ORDERED: ONDANSETRON 4 MG/2 ML VIAL IVP PRN ×2 (12:13→15:20)
[2020-10-28] MEDS ORDERED: MORPHINE 2 MG/ML CARPUJECT IVP PRN (12:13)
[2020-10-28] MEDS ORDERED: fentaNYL 100 MCG/2 ML VIAL IVP PRN (12:13)
[2020-10-28] MEDS ORDERED: ATROPINE ABBOJECT 1 MG/10 ML SYRINGE IVP PRN (12:13)
[2020-10-28] MEDS ORDERED: HYDROmorphone 0.5 MG/0.5 ML SYRINGE IVP PRN (12:13)
[2020-10-28] MEDS ORDERED: NALOXONE 0.4 MG/ML VIAL IVP PRN (12:13)
[2020-10-28] MEDS ORDERED: LIDOCAINE-MPF 2% 5 ML VIAL ONE (12:16)
[2020-10-28] MEDS ORDERED: PROPOFOL 200 MG/20 ML VIAL IVP ONE (12:16)
[2020-10-28] MEDS ORDERED: fentaNYL 100 MCG/2 ML VIAL ONE ×2 (12:16→13:41)
[2020-10-28] MEDS ORDERED: MIDAZOLAM 2 MG/2 ML VIAL ONE (12:16)
--- NOTE | 2020-10-28 12:19 | ANESTHESIA ---
Pre-Anesthesia VS, & Labs - Diagnosis right breast cancer - Procedure right simple mastectomy with axillary node dissection Vital Signs: Temp Pulse Resp BP Pulse Ox 36.6 C 64 16 122/84 H 98 10/28/20 11:35 10/28/20 11:35 10/28/20 11:35 10/28/20 11:35 10/28/20 11:35 Height: 5 ft 7 in Weight (kg): 87 kg Body Mass Index: 30.0 BMI Classification: Obese - NPO >8 hours - Is Patient ?: No Home Medications and Allergies Active Medications Atropine Sulfate (Atropine Abboject 1 Mg/10 Ml Syringe) 0.5 mg IVP Q5M PRN PRN Reason: Bradycardia Stop: 10/29/20 12:13 Fentanyl (Fentanyl 100 Mcg/2 Ml Vial) 25 - 50 mcg IVP Q5M PRN PRN Reason: BREAKTHROUGH PAIN (2nd Choice) Stop: 10/29/20 12:13 Hydromorphone HCl (Hydromorphone 0.5 Mg/0.5 Ml Syringe) 0.2 - 0.6 mg IVP Q5M PRN PRN Reason: PAIN (First Choice) Stop: 10/29/20 12:13 Lactated Ringer's (Lr) 1,000 mls @ 100 mls/hr IV .Q10H VERNELL Stop: 10/28/20 22:59 Morphine Sulfate (Morphine 2 Mg/Ml Carpuject) 2 - 4 mg IVP Q5M PRN PRN Reason: PAIN (3rd Choice) Stop: 10/29/20 12:13 Naloxone HCl (Naloxone 0.4 Mg/Ml Vial) 0.1 mg IVP Q2M PRN PRN Reason: RESP RATE <8 Stop: 10/29/20 12:13 Ondansetron HCl (Ondansetron 4 Mg/2 Ml Vial) 4 mg IVP ONCE PRN PRN Reason: N/V (First Choice) Stop: 10/29/20 12:13 Albuterol Sulfate [Proair Hfa Inhaler] 1 - 2 puffs INH Q4H PRN 05/09/19 Allergies/Adverse Reactions: Allergies Allergy/AdvReac Type Severity Reaction Status Date / Time shellfish derived Allergy Anaphylaxis Verified 09/24/20 16:42 Anes History & Medical History - Anesthetic History Anesthesia Complications: reports: No previous complications - Medical History Cardiovascular: reports: None Pulmonary: reports: Asthma (last use 3 months ago) Gastrointestinal: reports: None Urinary: reports: None Neuro: reports: None Musculoskeletal: reports: None Endocrine/Autoimmune: reports: None Blood Disorders: reports: Anemia Skin: reports: None Smoking Status: Never smoker Psychosocial: reports: No issues indicated History of Cancer?: Yes (last chemo 09/2020) - Surgical History General: reports: Other Gynecologic: reports: section, Hysterectomy Exam General: Alert, Oriented x3, Cooperative, No acute distress Dental: WNL Mouth Openin Fingerbreadth Neck Mobility: Normal Mallampati classification: II Thyromental Distance: 4-6 cm Respiratory: Lungs clear, Normal breath sounds, No respiratory distress, No accessory muscle use Cardiovascular: Regular rate, Normal S1, Normal S2, No murmurs Mental/Cognitive Status: Alert/Oriented X3, Normal for patient Plan Anesthesia Type: General Consent for Procedure(s) Verified and Reviewed: Yes Code Status: Attempt Resuscitation ASA classification: 3-Severe systemic disease Is this case an emergency?: No
[2020-10-28] MEDS ORDERED: BUPIVACAINE 0.5%-EPI 1:200000 PF 30 ML VIAL ONE (12:20)
[2020-10-28] MEDS ORDERED: LIDOCAINE-MPF 1% 30 ML VIAL ONE (12:20)
[2020-10-28] MEDS ORDERED: HYDROmorphone 1 MG/ML CARPUJECT ONE ×3 (12:56→15:13)
[2020-10-28] MEDS ORDERED: BUPIVACAINE 0.5% PF 30 ML VIAL INFIL ONE (12:59)
[2020-10-28] MEDS ORDERED: LIDOCAINE 2%-EPI 1:100000 20 ML MDV SUBQ ONE (12:59)
[2020-10-28] MEDS ORDERED: LACTATED RINGERS 1,000 ML IV SCH (13:00)
[2020-10-28] MEDS ORDERED: DEXAMETHASONE 4 MG/ML VIAL ONE (13:06)
--- NOTE | 2020-10-28 15:05 | OPERATIVE REPORT ---
Operative Report - General Planned Procedure: Right mastectomy and axillary node dissection Pre-Op Diagnosis: Locally advance right breast cancer Procedure Performed: Right mastectomy and axillary node dissection Post Op Diagnosis: Locally advance right breast cancer - Procedure Note Primary Surgeon: Maki Anesthesia Provider: LUC Mcgee; LUC Cooper Anesthesia Technique: General LMA Pathology: Right breast and axillary contents to pathology Estimated Blood Loss (mL): 230 Drain/Tube Type: Emiliano drain (19 [place] in the inframammary pocket) Indications: Locally advanced right breast cancer that has not responded favorably to neoadjuvant chemotherapy Findings: 1. Mass adherent to the pectoralis fascia superiorly 2. Significant venous congestion and edema throughout the breast 3. Large firm nodes within the axilla extending beyond level 4 and the limit of dissection. Complications: None apparent - Other Other Information/Narrative: After obtaining informed consent, the patient is brought to the operating room and placed in supine position on the operating table. Following successful induction of sedation with monitored anesthesia care and appropriate padding of all bony prominences, bilateral chest and neck were prepped and draped in the standard surgical fashion. A timeout was held per scope protocol. All elements of the surgical safety checklist were followed before, during, and after the procedure. We began the procedure by infiltrating half percent Marcaine plain throughout the subcutaneous tissue of the breast and beneath the pectoralis major and minor muscles As well as portions of the serratus anterior. This was to done to provide a field block. An incision was fashioned elliptically. This incision was then completed with a 10 blade scalpel. It was carried through the skin and subcutaneous tissue. Traction and countertraction were then used to divide the underlying breast tissue from the overlying dermis from the level of the incision to the clavicle superiorly, medially to the sternum, inferiorly to the inframammary fold, and lateral to the posterior axillary line. Dissection was continued into the right axilla to include the remainder of the axillary node packet. Limits of dissection in the axilla where the chest wall medially, the axillary vein superiorly, the skin of the axilla laterally, and the dissection and blended into the dissection of the axillary tail inferiorly. All palpable lymph nodes were taken from level 1 and 2 and palpably enlarged nodes from level 3. [place] tissue consistent with malignancy was noted on and around the axillary vein. This tissue was taken as close to the vein wall as possible without damage. Additional enlarged and abnormal nodes were palpabed at level 4 and superiorly in the region of the brachial plexus. We did not attempt to remove these nodes as it would not benefit the patient and has potential to cuase harm. Once a circumferential dissection had been obtained, the breast was removed in a medial to lateral fashion to include the remaining portion of the right axillary node packet. All perforators were addressed with sutures or with cautery prior to division. The breast was then marked with a short stitch superior and a long stitch lateral. The wound was irrigated with warm water and aspirated free of all fluid and particulate matter. It was checked once again for hemostasis and touched up in just a couple of places with cautery. A 19 [place] Emiliano drain was placed in the inframammary pocket and brought out inferior medially. It was sewn into place. The skin edges were then closed in an interrupted fashion with Vicryl suture and the Endo Close device was used to approximate the skin. The wound was cleaned and the Sue wound management device was then placed to the overlying skin and hooked up to suction. A good seal was obtained. All sponge, needle, and instrument counts were correct at the conclusion of the case. The patient was allowed to wake from anesthesia without difficulty and taken to the postanesthesia care unit in good condition.
[2020-10-28] MEDS ORDERED: oxyCODONE 5 MG TABLET PO PRN (15:20)
[2020-10-28] MEDS ORDERED: IBUPROFEN 600 MG TABLET PO PRN (15:20)
[2020-10-28] MEDS ORDERED: ACETAMINOPHEN 325 MG TABLET PO PRN (15:20)
[2020-10-28 16:27] VITALS: BP 145/87
--- NOTE | 2020-10-28 16:58 | ANESTHESIA POST OP EVALUATION ---
Anesthesia Post Eval - Post Anesthesia Eval Vitals: Last Vital Signs Temp 37.4 C 10/28/20 16:26 Pulse 74 10/28/20 16:26 Resp 14 10/28/20 16:26 BP 145/87 H 10/28/20 16:26 Pulse Ox 100 10/28/20 16:26 CV Function Including HR & BP: Stable Pain Control: Satisfactory Nausea & Vomiting: Negative Mental Status: Baseline Respiratory Status: Airway Patent Hydration Status: Satisfactory Anesthesia Complications: None
== END 2020-10-28 11:28 | disposition home or self-care (01) ==
LOC: SDS 11:27
PROVIDERS: ATTEND Surgery
PROC: 07B50ZZ Excision of Right Axillary Lymphatic, Open Approach (ICD-10-PCS; 2020-10-28)
PROC: 0HTT0ZZ Resection of Right Breast, Open Approach (ICD-10-PCS; principal; 2020-10-28 12:30)
DX: C50.911 Malignant neoplasm of unspecified site of right female breast (principal); E66.9 Obesity, unspecified; Z68.30 Body mass index [BMI] 30.0-30.9, adult; Z92.21 Personal history of antineoplastic chemotherapy
CPT/HCPCS: 19307; J0690; J1170; J7120; 88309; 88341; 88342; 88360

== ENCOUNTER 2020-12-30 07:33 | Outpatient (CLI) | payer BC ==
[2020-12-30] MEDS ORDERED: GADOBUTROL 15 MMOL/15 ML VIAL ONE (07:41)
--- NOTE | 2020-12-30 09:12 | MRI Report ---
PROCEDURE: Brain W/WO INDICATIONS: BREAST CA CONTRAST: IV CONTRAST: Gadavist ml: 8.7 TECHNIQUE: Noncontrast axial T1 spin echo, axial T2 fast spin echo, sagittal and axial FLAIR, coronal T2 fast sp in echo, axial gradient echo, axial diffusion and ADC through the brain. After the administration of contrast, axial and coronal T1 spin echo with fat saturation through the brain. COMPARISON: None. FINDINGS: Image quality: Excellent. CSF spaces: Basal cisterns are patent. No extra-axial fluid collections. Ventricles are normal in size and shape. Brain: No midline shift. No intracranial bleeds or masses. No abnormal intracranial enhancement. There is cerebral volume loss for age. There is periventricular white matter chronic small vessel is chemic change. The brainstem appears normal. Diffusion-weighted images demonstrate no acute ischemi c insults. No chronic ischemic insults. Normal intravascular flow voids are present. Skull and face: Calvarial marrow is normal in signal. Orbits appear normal. Sinuses: Mucosal thickening, right maxillary sinus. Other paranasal sinuses and mastoids are clear. IMPRESSION: 1. Chronic right maxillary sinusitis. 2. Otherwise unremarkable brain MRI with and without contrast. No evidence of acute stroke, hemorrhag e, or mass. Reviewed by: Miguel Ángel Livingston MD on 12/30/2020 9:11 AM PDT Approved by: Miguel Ángel Livingston MD on 12/30/2020 9:11 AM PDT Station ID: [id number]
[2020-12-30] MEDS ORDERED: GADOBUTROL 15 MMOL/15 ML VIAL IVP ONE (11:27)
== END 2020-12-30 07:34 | disposition home or self-care (01) ==
LOC: DI 07:33
PROVIDERS: ATTEND Internal Medicine Hematology & Oncology
DX: C50.919 Malignant neoplasm of unspecified site of unspecified female breast (principal); J32.0 Chronic maxillary sinusitis
CPT/HCPCS: 70553; A9585

== ENCOUNTER 2021-01-30 07:47 | Outpatient (CLI) | payer BC ==
[2021-01-30] MEDS ORDERED: IOVERSOL 320 50 ML VIAL ONE (07:58)
[2021-01-30] MEDS ORDERED: IOVERSOL 320 100 ML VIAL IVP ONE ×2 (07:58→09:21)
[2021-01-30] MEDS ORDERED: IOVERSOL 320 50 ML VIAL PO ONE (09:21)
--- NOTE | 2021-01-30 10:23 | CT Report ---
PROCEDURE: CHEST W INDICATIONS: BREAST CA CONTRAST: IV CONTRAST: Optiray 320 ml: 100 PO CONTRAST: Optiray 320 ml50 TECHNIQUE: After the administration of intravenous contrast, 1 mm axial images were acquired from the pulmonary apices through the posterior costophrenic angles. Axial 5 mm soft tissue kernel reconstructions were performed as well as 8 mm axial MIP and coronal and sagittal 5 mm reformations. For radiation dose reduction, the following was used: automated exposure control, adjustment of mA and/or kV according to patient size. COMPARISON: Same day CT abdomen and pelvis. CT chest 10/22/2020, 04/30/2020. FINDINGS: Image quality: Excellent. Lungs and pleura: No acute air space opacities. No new or enlarging pulmonary nodules. A few pulmona ry nodules measuring 0.3 cm or less. For example left lower lobe 0.2 cm, (3/208), unchanged. No pleu ral effusions or pneumothorax. Central and peripheral airways are patent and normal in caliber. Mediastinum: Heart size is normal. No pericardial effusion. No mediastinal or hilar adenopathy by size criteria. Thoracic aorta and central pulmonary arteries are normal in size. Esophagus is gayatri l in caliber. No hiatal hernia. Bones and chest wall: No suspicious bony lesions. No vertebral body compression fractures. The thyr oid is normal in size and there are no incidental findings. Interval right mastectomy and right axill marialuisa node dissection. No enlarged lymph nodes identified. Small right retropectoral nodes are unchange d. No internal mammary nodes identified. No left axillary adenopathy. No supra clavicular adenopathy. Abdomen: Visualized upper abdominal solid organs appear normal. Upper abdominal bowel loops are nor mal in caliber. IMPRESSION: 1. No metastatic disease identified in the chest. 2. Interval right mastectomy. 3. Right axillary node dissection. No enlarged nodes. Small right retropectoral nodes are unchanged. Reviewed by: Lamberto Murray MD on 01/30/2021 10:21 AM PDT Approved by: Lamberto Murray MD on 01/30/2021 10:21 AM PDT Station ID: [id number]
--- NOTE | 2021-01-30 10:32 | CT Report ---
PROCEDURE: Abdomen/Pelvis W INDICATIONS: BREAST CA CONTRAST: IV CONTRAST: Optiray 320 ml: 100 PO CONTRAST: Optiray 320 ml50 TECHNIQUE: After the administration of oral and intravenous contrast, 5 mm thick sections acquired from the diap hragms to the symphysis. 5 mm thick coronal and sagittal reformats were acquired. For radiation dos e reduction, the following was used: automated exposure control, adjustment of mA and/or kV accordin g to patient size. COMPARISON: Same day CT chest. CT abdomen and pelvis 10/22/2020, 04/30/2020. FINDINGS: Image quality: Excellent. ABDOMEN: Lung bases: Lung bases are clear. Heart size is normal. Solid organs: Liver and spleen are normal in size and enhancement. No focal lesion. Gallbladder is p rominent in size. No calcified gallstones. Biliary system is non dilated. Pancreas enhances normall y. No adrenal nodules. Kidneys demonstrate normal size and enhancement, without hydronephrosis. Peritoneum and bowel: Bowel loops demonstrate normal wall thickness and caliber. Somewhat prominent stool in the proximal colon. No free fluid or air. Nodes and vessels: No retroperitoneal or mesenteric adenopathy by size criteria. Aorta and inferior vena cava are normal in size. Miscellaneous: No ventral hernias. PELVIS: Genitourinary: Bladder is decompressed. Uterus is absent. Miscellaneous: No inguinal hernias or adenopathy. Bones: No suspicious bony lesions. No vertebral body compression fractures. IMPRESSION: No metastatic disease identified in the abdomen or pelvis. Reviewed by: Lamberto Murray MD on 01/30/2021 10:30 AM PDT Approved by: Lamberto Murray MD on 01/30/2021 10:30 AM PDT Station ID: [id number]
== END 2021-01-30 07:48 | disposition home or self-care (01) ==
LOC: DI 07:47
PROVIDERS: ATTEND Internal Medicine Hematology & Oncology
DX: C50.919 Malignant neoplasm of unspecified site of unspecified female breast (principal); Z90.11 Acquired absence of right breast and nipple
CPT/HCPCS: 71260; 74177; Q9967

== ENCOUNTER 2021-04-16 11:48 | Emergency (ER) | payer BC ==
--- NOTE | 2021-04-16 12:21 | ED Physician Documentation ---
History of Present Illness - Stated complaint Stated Complaint: ABD SWELLING - Chief complaint Chief Complaint: Abd Pain - History obtained from History obtained from: Patient - History of Present Illness Timing: Today Pain level max: 4 Pain level now: 3 - Additonal information Additional information: 50-year-old female with a history of breast cancer who presents to the emergency department with increasing abdominal pain. She had been on Xeloda at home but had increasing liver function test so this was stopped about a week ago. She describes the feeling as pressure and feels like her stomach is going to "burst". No vomiting. No diarrhea. Has had intermittent constipation. She is scheduled for a CT of the abdomen pelvis in April. No urinary symptoms. No blood in the stool. No fevers. No chills. Nothing seems to make it better. Worse with lying down and seems to be worse at night. 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 - Present Medications Home Medications: Ambulatory Orders Medication Instructions Recorded Confirmed Albuterol Sulfate [Proair Hfa 1 - 2 puffs INH Q4H PRN 05/09/19 04/08/21 Inhaler] Lidocaine/Prilocain 2.5% Cream 5 applic TOP BID #1 tube 04/22/20 04/08/21 [Emla 2.5% Cream] Ondansetron Odt [Zofran Odt] 4 mg TL Q6H PRN #20 tablet 10/28/20 04/08/21 oxyCODONE [Roxicodone] 5 mg PO Q4H PRN #30 tablet 10/28/20 04/08/21 Capecitabine [Xeloda] 2,500 mg PO DAILY 11/14/20 04/08/21 Oxycodone HCl [Roxicodone] 5 - 10 mg PO Q6H PRN #20 tablet 04/16/21 - Allergies Allergies/Adverse Reactions: Allergies Allergy/AdvReac Type Severity Reaction Status Date / Time shellfish derived Allergy Anaphylaxis Verified 04/16/21 12:02 - Social History Smoking Status: Never smoker PD ED PE NORMAL - Vitals Vital signs reviewed: Yes - General General: Alert and oriented X 3, No acute distress - HEENT HEENT: Moist mucous membranes - Neck Neck: Supple, no meningeal sign - Cardiac Cardiac: RRR - Respiratory Respiratory: No respiratory distress, Clear bilaterally - Abdomen Abdomen: Soft, Non tender, Other (mild distention. Hepatomegaly present) - Derm Derm: Warm and dry - Extremities Extremities: No edema, No calf tenderness / cord - Neuro Neuro: Alert and oriented X 3 Results - Vitals Vitals: Vital Signs - 24 hr 04/16/21 04/16/21 04/16/21 11:59 14:02 15:07 Temperature 36.4 C L Heart Rate 112 H 95 104 H Respiratory 20 20 17 Rate Blood Pressure 151/95 H 136/93 H 145/79 H O2 Saturation 96 97 99 Oxygen O2 Source Room air - Labs Labs: Laboratory Tests 04/16/21 04/16/21 04/16/21 13:15 13:15 13:15 WBC 6.2 RBC 3.28 L Hgb 12.4 Hct 36.7 L MCV 111.9 H MCH 37.8 H MCHC 33.8 RDW 17.1 H Plt Count 86 L MPV 10.7 Neut # (Auto) 4.9 Lymph # (Auto) 0.7 L [place] # (Auto) 0.6 Eos # (Auto) 0.0 Baso # (Auto) 0.0 Absolute Nucleated RBC 0.00 Nucleated RBC % 0.0 PT 17.9 H INR 1.6 H APTT 208.0 H* Sodium 134 L Potassium 4.3 Chloride 96 L Carbon Dioxide 14 L Anion Gap 24.0 H BUN 9 Creatinine 0.6 Estimated GFR (MDRD) 107 Glucose 72 Calcium 9.1 Total Bilirubin 2.2 H AST 145 H ALT 36 Alkaline Phosphatase 300 H Total Protein 6.5 L Albumin 3.5 Globulin 3.0 Albumin/Globulin Ratio 1.2 Lipase 23 - Rads (name of study) CT abdomen and pelvis Radiology: Final report received, EMP read contemporaneously, See rad report PD MEDICAL DECISION MAKING - ED course Complexity details: reviewed old records, reviewed results, re-evaluated patient, considered differential, d/w patient, d/w specification consultant ED course: 50-year-old female with known breast cancer. She is currently on maintenance therapy. She has multiple new ill-defined hepatic mass lesions, likely representing metastatic disease. There is some mild ascites as well. There is not enough ascites to obtain a sample for cytology. Patient is well-appearing, nontoxic. Afebrile. Reviewed lab results and CT findings with her oncologist, Dr. Ronquillo. She will follow up in the clinic with her for further care. Patient does have a mild metabolic acidosis as well. This will be rechecked with Dr. Ronquillo. I am prescribing a short course of short-acting opioid pain medication for this patient. 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 I have discussed that the opioids are for short term therapy only, and will not be refilled from the ED. patient counseled regarding signs and symptoms for which I believe and urgent re-evaluation would be necessary. Patient with good understanding of and agreement to plan and is comfortable going home at this time This document was made in part using voice recognition software. While efforts are made to proofread this document, sound alike and grammatical errors may occur. IMPRESSION: 1. Multiple new ill-defined hepatic mass lesions likely representing metastatic disease. Further characterization may be obtained with a liver protocol MRI if clinically indicated. 2. Nonspecific gallbladder wall thickening may reflect sequelae of liver synthetic malfunction but correlation is recommended clinically for possible cholecystitis. 3. Segmental colonic wall thickening involving the ascending, transverse, and descending colon suggestive of an infectious or inflammatory colitis versus portal colopathy. 4. Multiple mildly enlarged mesenteric and retroperitoneal lymph nodes suspicious for metastatic disease. Departure - Departure Disposition: 01 Home, Self Care Clinical Impression: Metastatic disease Qualifiers: Area of secondary neoplastic involvement: unspecified site Qualified Code(s): C79.9 - Secondary malignant neoplasm of unspecified site Ascites Qualifiers: Ascites type: malignant Qualified Code(s): R18.0 - Malignant ascites Condition: Good Instructions: ED Abdominal Pain Female Non-Specific Abdominal Pain Follow-Up: Zulma Ronquillo MD [Physician No Access] - Zulma Ronquillo MD [Provider Admit Priv/Credential] - Within 3 Days Prescriptions: Oxycodone HCl [Roxicodone] 5 - 10 mg PO Q6H PRN #20 tablet PRN Reason: Abdominal Pain Comments: It is important that you follow-up with Dr. Ronquillo for further care. I spoke with her today and she will schedule you for a biopsy. Unfortunately there is not enough fluid for us to take a sample of the fluid here today. Your CT results are below. Your prescription was sent to [facility] in [place] I am prescribing a short course of narcotic pain medication for you. These are potentially dangerous and addictive medications that should be used carefully. These medications may constipate you. Take an [id number]-tqq-xysnbeq stool softener (docusate) twice daily with plenty of water while taking these medications. If you go 24 hours without a bowel movement, take [id number]-[id number] miralax, per package instructions. Do not drink or drive while taking these medications. If you received narcotic or sedating medications while in the emergency department, do not drive for 24 hours. Store this medication in a safe, secure place and out of reach of children. It is a violation of federal law to give or sell this medication to another person or to use in a manner other than prescribed. The ED will not refill narcotic prescriptions, including prescriptions lost or stolen. To dispose of unwanted medications: 1. [facility] [address] in [place] has a medication drop box. They accept prescription medications (in pill form) Wednesday through Wednesday 9:00 a.m. to 5:00 p.m. 2. [facility] [employer] [facility] accepts prescription medications (in pill form only) for disposal year round. Call for more information. 3. Contact the [facility] for the next [facility] sponsored prescription drug collection event. , [phone], or [phone]; ABDOMEN: Lung bases: There is mild scarring and atelectasis in the lung bases. Heart size is normal. There is a small hiatal hernia. The visualized chest wall demonstrates surgical absence of the right breast. Solid organs: There is heterogeneous enhancement throughout the liver with a few peripherally enhancing hypoattenuating mass lesions which are new compared to the prior studies. These include a subcapsular mass anteriorly within segment 8 of the right hepatic lobe measuring approximately 3.0 x 2.1 cm in transverse dimension on series 3 image 13. No special service representative mass posteriorly in the right hepatic lobe in segment 6 measures approximately 3.2 x 2.1 cm on series 3 image 33. An ill-defined infiltrative hypoattenuating mass is also demonstrated inferiorly in segment 6 with indistinct margins. The findings likely represent metastatic disease. The gallbladder is nondistended. There is nonspecific gallbladder wall thickening and enhancement. Biliary system is non dilated. Pancreas enhances normally. No adrenal nodules. Kidneys demonstr ate normal size and enhancement, without hydronephrosis. Peritoneum and bowel: The stomach and small bowel loops demonstrate normal wall thickness and caliber. There is segmental bowel wall thickening involving the ascending, transverse, and proximal descending colon consistent with colitis. There is a moderate amount of free fluid within the abdomen and pelvis. No free air. No loculated fluid collections to suggest an abscess. Nodes and vessels: Multiple prominent mesenteric and retroperitoneal lymph nodes are demonstrated including a special service representative left para-aortic retroperitoneal node measuring up to 1.3 cm on series 3 image 33. A special service representative aortocaval node measures up to 1.2 cm on series 3 image 42. Aorta and inferior vena cava are normal in size. Miscellaneous: No ventral hernias. PELVIS: Genitourinary: Bladder wall thickness is normal. Miscellaneous: No inguinal hernias or adenopathy. Bones: No suspicious bony lesions. No vertebral body compression fractures. IMPRESSION: 1. Multiple new ill-defined hepatic mass lesions likely representing metastatic disease. Further characterization may be obtained with a liver protocol MRI if clinically indicated. 2. Nonspecific gallbladder wall thickening may reflect sequelae of liver synthetic malfunction but correlation is recommended clinically for possible cholecystitis. 3. Segmental colonic wall thickening involving the ascending, transverse, and descending colon suggestive of an infectious or inflammatory colitis versus portal colopathy. 4. Multiple mildly enlarged mesenteric and retroperitoneal lymph nodes suspicious for metastatic disease. Discharge Date/Time: 04/16/21 15:07
[2021-04-16] MEDS ORDERED: IOVERSOL 320 100 ML VIAL IVP ONE ×2 (12:28→18:50)
[2021-04-16] MEDS ORDERED: IOPAMIDOL-300 50 ML VIAL ONE (12:29)
[2021-04-16 13:22] LABS: BASOPHILS % (AUTO) 0.5 %; EOSINOPHILS % (AUTO) 0.5 %; HCT - HEMATOCRIT 36.7 % (37.0-47.0); HGB - HEMOGLOBIN 12.4 g/dL (12.0-16.0); LYMPHOCYTES # (AUTO) 0.7 10^3/uL (1.5-3.5); LYMPHOCYTES % (AUTO) 10.9 %; MEAN CORPUSCULAR HEMOGLOBIN 37.8 pg (27.0-31.0); MEAN CORPUSCULAR HGB CONC 33.8 g/dL (32.0-36.0); MEAN CORPUSCULAR VOLUME 111.9 fL (81.0-99.0); MEAN PLATELET VOLUME 10.7 fL (7.9-10.8); MONOCYTES # (AUTO) 0.6 10^3/uL (0.0-1.0); MONOCYTES % (AUTO) 9.3 %; NEUTROPHILS # (AUTO) 4.9 10^3/uL (1.5-6.6); NEUTROPHILS % (AUTO) 78.3 %; PLT - PLATELET COUNT 86 10^3/uL (130-450); RED BLOOD COUNT 3.28 10^6/uL (4.20-5.40); RED CELL DISTRIBUTION WIDTH 17.1 % (12.0-15.0); WHITE BLOOD COUNT 6.2 x10^3/uL (4.8-10.8)
[2021-04-16 13:42] LABS: INR 1.6 (0.8-1.2); PT - PROTHROMBIN TIME 17.9 secs (9.9-12.6)
[2021-04-16 13:58] LABS: ALBUMIN 3.5 g/dL (3.2-5.5); ALBUMIN/GLOBULIN RATIO 1.2 (1.0-2.2); BILIRUBIN,TOTAL 2.2 mg/dL (0.2-1.0); CALCIUM 9.1 mg/dL (8.5-10.3); CREATININE 0.6 mg/dL (0.4-1.0); POTASSIUM 4.3 mmol/L (3.5-5.0); TOTAL PROTEIN 6.5 g/dL (6.7-8.2)
[2021-04-16] MEDS ORDERED: oxyCODONE 5 MG TABLET PO STA (14:39)
--- NOTE | 2021-04-16 14:41 | CT Report ---
PROCEDURE: Abdomen/Pelvis W INDICATIONS: h/o breast CA, inc abd pain/swelling CONTRAST: IV CONTRAST: Optiray 320 ml: 100 PO CONTRAST: Isovue 300 ml50 TECHNIQUE: After the administration of oral and intravenous contrast, 5 mm thick sections acquired from the diap hragms to the symphysis. 5 mm thick coronal and sagittal reformats were acquired. For radiation dos e reduction, the following was used: automated exposure control, adjustment of mA and/or kV accordin g to patient size. COMPARISON: CT abdomen pelvis 01/30/2021, 10/22/2020, 04/30/2020. FINDINGS: Image quality: Excellent. ABDOMEN: Lung bases: There is mild scarring and atelectasis in the lung bases. Heart size is normal. There is a small hiatal hernia. The visualized chest wall demonstrates surgical absence of the right breast. Solid organs: There is heterogeneous enhancement throughout the liver with a few peripherally enhanci ng hypoattenuating mass lesions which are new compared to the prior studies. These include a subcapsu lar mass anteriorly within segment 8 of the right hepatic lobe measuring approximately 3.0 x 2.1 cm i n transverse dimension on series 3 image 13. No mortician supplies sales representative mass posteriorly in the right hepatic lobe in segment 6 measures approximately 3.2 x 2.1 cm on series 3 image 33. An ill-defined infiltrati ve hypoattenuating mass is also demonstrated inferiorly in segment 6 with indistinct margins. The fin dings likely represent metastatic disease. The gallbladder is nondistended. There is nonspecific gallbladder wall thickening and enhancement. Bi liary system is non dilated. Pancreas enhances normally. No adrenal nodules. Kidneys demonstrate n ormal size and enhancement, without hydronephrosis. Peritoneum and bowel: The stomach and small bowel loops demonstrate normal wall thickness and calibe r. There is segmental bowel wall thickening involving the ascending, transverse, and proximal descend ing colon consistent with colitis. There is a moderate amount of free fluid within the abdomen and pe lvis. No free air. No loculated fluid collections to suggest an abscess. Nodes and vessels: Multiple prominent mesenteric and retroperitoneal lymph nodes are demonstrated in cluding a mortician supplies sales representative left para-aortic retroperitoneal node measuring up to 1.3 cm on series 3 nitish ge 33. A mortician supplies sales representative aortocaval node measures up to 1.2 cm on series 3 image 42. Aorta and inferio r vena cava are normal in size. Miscellaneous: No ventral hernias. PELVIS: Genitourinary: Bladder wall thickness is normal. Miscellaneous: No inguinal hernias or adenopathy. Bones: No suspicious bony lesions. No vertebral body compression fractures. IMPRESSION: 1. Multiple new ill-defined hepatic mass lesions likely representing metastatic disease. Further pura acterization may be obtained with a liver protocol MRI if clinically indicated. 2. Nonspecific gallbladder wall thickening may reflect sequelae of liver synthetic malfunction but co rrelation is recommended clinically for possible cholecystitis. 3. Segmental colonic wall thickening involving the ascending, transverse, and descending colon sugges tive of an infectious or inflammatory colitis versus portal colopathy. 4. Multiple mildly enlarged mesenteric and retroperitoneal lymph nodes suspicious for metastatic dise ase. Reviewed by: Darci Piper MD on 04/16/2021 2:40 PM PST Approved by: Darci Piper MD on 04/16/2021 2:40 PM PST Station ID: [id number]
[2021-04-16 15:08] VITALS: BP 145/79
[2021-04-16] MEDS ORDERED: IOPAMIDOL-300 50 ML VIAL PO ONE (18:51)
== END 2021-04-16 15:07 | disposition home or self-care (01) ==
LOC: ED 11:48
DX: D49.3 Neoplasm of unspecified behavior of breast (principal); C79.9 Secondary malignant neoplasm of unspecified site; R18.0 Malignant ascites
CPT/HCPCS: 36415; 74177; 80053; 83690; 85025; 85610; 85730; 96374; 99284; 99285; A9270; Q9967

== ENCOUNTER 2021-04-24 06:35 | Outpatient (CLI) | payer BC ==
[2021-04-24] MEDS ORDERED: LACTATED RINGERS 1,000 ML IV ONE ×2 (07:32→09:50)
[2021-04-24] MEDS ORDERED: lidocaine 1% 20 ML MDV ONE ×2 (07:34→09:00)
[2021-04-24 08:35] LABS: INR 1.6 (0.8-1.2); PT - PROTHROMBIN TIME 17.9 secs (9.9-12.6)
[2021-04-24 08:42] LABS: PARTIAL THROMBOPLASTIN TIME 30.6 secs (24.9-33.3)
[2021-04-24] MEDS ORDERED: fentaNYL 100 MCG/2 ML VIAL ONE (08:59)
[2021-04-24] MEDS ORDERED: MIDAZOLAM 2 MG/2 ML VIAL ONE (08:59)
[2021-04-24] MEDS ORDERED: lidocaine 1% 20 ML MDV SUBQ ONE (12:57)
[2021-04-24 13:46] VITALS: BP 122/86
--- NOTE | 2021-04-24 13:55 | Ultrasound Report ---
PROCEDURE: Abdominal Paracentesis INDICATIONS: Liver Mets ascites TECHNIQUE: The indications, alternatives, benefits, risks, and complications of the procedure were explained to the patient. Written informed consent was obtained and placed in the chart. The abdomen and pelvis were examined sonographically, and an appropriate site was chosen for paracentesis. The skin was pre pared and draped in the usual sterile fashion, and 1% lidocaine was infiltrated from the skin down th rough the peritoneal surface. A 19-gauge catheter-covered needle was then introduced into the perito samia space under real-time ultrasound guidance, the catheter was advanced and the needle was withdraw n, and thereafter peritoneal fluid was withdrawn. The catheter was then removed and a dressing was a pplied. The fluid was discarded if the clinician did not order diagnostic testing of the fluid. COMPARISON: None FINDINGS: Access site: Right upper quadrant Needle: One-Step centesis catheter with introducer needle was advanced under real-time ultrasound gu idance. Fluid volume and description: Approximately 1.5 L of clear fluid Fluid sent for diagnostic testing: Not sent Medications: 1% lidocaine for local anaesthesia. Complications: None. IMPRESSION: Successful ultrasound-guided paracentesis. Reviewed by: Anil Woodard on 04/24/2021 1:54 PM PST Approved by: Anil Woodard on 04/24/2021 1:54 PM PST Station ID: [id number]
--- NOTE | 2021-04-24 14:05 | Ultrasound Report ---
PROCEDURE: Ultrasound-guided liver biopsy with sedation analgesia INDICATIONS: Liver Mets ascites TECHNIQUE: The indications, alternatives, benefits, risks, and complications of the procedure were e xplained to the patient. Written informed consent was obtained and placed in the chart. Continuous EKG and hemodynamic monitoring was started by trained personnel. The patient was initially scheduled for CT-guided biopsy, however during the paracentesis procedure, the suspected mass could be visualized and given the location in the dome of the liver was felt that approach with ultrasound would be safer if possible given the location. Therefore CT-guided biopsy wa s changed to ultrasound-guided biopsy. Real-time sonography was utilized to choose the site for percutaneous hepatic biopsy. The skin was p repped and draped in the usual sterile fashion. 1% lidocaine was infiltrated down to the hepatic cap maldonado. A coaxial needle was then advanced into the liver under direct sonographic visualization. A b [employer] apparatus was then utilized, and core biopsies were obtained. The needle was then withdrawn; a bandage and overlying weight were applied to the biopsy site. COMPARISON: None. FINDINGS: Biopsy site(s): Right lobe of the liver Needle: [email or web address] biopsy needle set. Number of passes: One pass was made with the 19-gauge trocar and 4 core biopsy samples were obtained. Medications: 1% lidocaine for local anaesthesia. IV Versed and Fentanyl for conscious sedation (see nursing record). Complications: None. IMPRESSION: Successful ultrasound-guided liver biopsy, with pathology results pending. If pathology results are negative, repeat biopsy is indicated. Reviewed by: Anil Woodard on 04/24/2021 2:03 PM PST Approved by: Anil Woodard on 04/24/2021 2:03 PM PST Station ID: [id number]
== END 2021-04-24 06:36 | disposition home or self-care (01) ==
LOC: DI 06:35
PROVIDERS: ATTEND Internal Medicine Hematology & Oncology
DX: C50.811 Malignant neoplasm of overlapping sites of right female breast (principal); C77.3 Secondary and unspecified malignant neoplasm of axilla and upper limb lymph nodes; C78.7 Secondary malignant neoplasm of liver and intrahepatic bile duct; Z20.822 Contact with and (suspected) exposure to COVID-19
CPT/HCPCS: 36415; 47000; 49083; 76942; 85049; 85610; 85730; 87635; J7120

== ENCOUNTER 2021-05-02 12:40 | Outpatient (CLI) | payer BC ==
[2021-05-02] MEDS ORDERED: lidocaine 1% 20 ML MDV ONE (14:03)
[2021-05-02] MEDS ORDERED: LIDOCAINE 1%-EPI 1:100000 20 ML MDV ONE (14:03)
[2021-05-02 14:57] LABS: INR 1.6 (0.8-1.2); PT - PROTHROMBIN TIME 17.7 secs (9.9-12.6)
[2021-05-02 15:04] LABS: PARTIAL THROMBOPLASTIN TIME 33.1 secs (24.9-33.3)
[2021-05-02] MEDS ORDERED: lidocaine 1% 20 ML MDV SUBQ ONE (16:21)
--- NOTE | 2021-05-02 16:37 | Ultrasound Report ---
PROCEDURE: Abdominal Paracentesis INDICATIONS: BREAST CA TECHNIQUE: The indications, alternatives, benefits, risks, and complications of the procedure were explained to the patient. Written informed consent was obtained and placed in the chart. The abdomen and pelvis were examined sonographically, and an appropriate site was chosen for paracentesis. The skin was pre pared and draped in the usual sterile fashion, and 1% lidocaine was infiltrated from the skin down th rough the peritoneal surface. A 19-gauge catheter-covered needle was then introduced into the perito samia space, the catheter was advanced and the needle was withdrawn, and thereafter peritoneal fluid w as withdrawn. The catheter was then removed and a dressing was applied. The fluid was discarded if the clinician did not order diagnostic testing of the fluid. COMPARISON: None. FINDINGS: Access site: Right lower abdomen Needle: One-Step centesis catheter with introducer needle. Fluid volume and description: 3.2 L; blood tinged. Fluid sent for diagnostic testing: Not requested by referring clinician. Medications: 1% lidocaine for local anaesthesia. Complications: None. IMPRESSION: Successful ultrasound-guided paracentesis. Reviewed by: Michael Saldana MD on 05/02/2021 4:36 PM PST Approved by: Michael Saldana MD on 05/02/2021 4:36 PM PST Station ID: [id number]
== END 2021-05-02 12:41 | disposition home or self-care (01) ==
LOC: DI 12:40
PROVIDERS: ATTEND Internal Medicine Hematology & Oncology
DX: C50.811 Malignant neoplasm of overlapping sites of right female breast (principal)
CPT/HCPCS: 36415; 49083; 85610; 85730

== ENCOUNTER 2021-05-03 20:17 | Inpatient (IN) | payer BC ==
--- NOTE | 2021-05-03 20:58 | ED Physician Documentation ---
History of Present Illness - Stated complaint Stated Complaint: WEAKNESS - Chief complaint Chief Complaint: Resp - History obtained from History obtained from: Patient - Additonal information Additional information: 50 yo female with metastatic breast CA. Had 3.2l therapuetic paracentesis for malignant ascites with increased weakness since yesterday with abd pressure and back and abd pain on standing. She has had generalized weakness that is worsening, again worse since yesterday. It is associated with some uncoordination and she drops things today. Does not favor one side or the other. No numbness. She is feeling very sleepy. 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 - Present Medications Home Medications: Ambulatory Orders Medication Instructions Recorded Confirmed Albuterol Sulfate [Proair Hfa 1 - 2 puffs INH Q4H PRN 05/09/19 04/29/21 Inhaler] Lidocaine/Prilocain 2.5% Cream 5 applic TOP BID #1 tube 04/22/20 04/29/21 [Emla 2.5% Cream] oxyCODONE [Roxicodone] 5 mg PO Q4H PRN #30 tablet 10/28/20 04/29/21 Capecitabine [Xeloda] 2,500 mg PO DAILY 11/14/20 04/29/21 Oxycodone HCl [Roxicodone] 5 - 10 mg PO Q4HR PRN 04/30/21 04/30/21 - Allergies Allergies/Adverse Reactions: Allergies Allergy/AdvReac Type Severity Reaction Status Date / Time shellfish derived Allergy Anaphylaxis Verified 05/03/21 20:29 - Social History Does the pt smoke?: No Smoking Status: Never smoker PD ED PE NORMAL - Vitals Vital signs reviewed: Yes - General General: Alert and oriented X 3, Other (jaundiced; sleepy but arouses easily) - HEENT HEENT: PERRL, EOMI, Other (icteric) - Neck Neck: Supple, no meningeal sign, No bony TTP - Cardiac Cardiac: RRR, No murmur - Respiratory Respiratory: No respiratory distress, Clear bilaterally - Abdomen Abdomen: Normal bowel sounds, Soft, Non tender - Back Back: No CVA TTP, No spinal TTP - Derm Derm: Normal color, Warm and dry - Neuro Neuro: Alert and oriented X 3, No sensory deficit, Normal speech, Other (mild diffuse weakness, She has asterixis) Eye Opening: Spontaneous Motor: Obeys Commands Verbal: Oriented GCS Score: 15 - Psych Psych: Normal mood, Normal affect Results - Vitals Vitals: Vital Signs - 24 hr 05/03/21 05/03/21 20:22 20:39 Temperature 36.6 C Heart Rate 112 H Respiratory 28 H Rate Blood Pressure 122/64 138/83 H O2 Saturation 92 100 Oxygen O2 Source Room air - Labs Labs: Laboratory Tests 05/03/21 05/03/21 05/03/21 21:29 21:29 21:29 WBC 11.7 H RBC 3.52 L Hgb 12.3 Hct 36.0 L MCV 102.3 H MCH 34.9 H MCHC 34.2 RDW 18.6 H Plt Count 91 L MPV 11.6 H Neut # (Auto) 10.4 H Lymph # (Auto) 0.5 L [place] # (Auto) 0.6 Eos # (Auto) 0.0 Baso # (Auto) 0.1 Absolute Nucleated RBC 0.00 Nucleated RBC % 0.0 PT INR Sodium 125 L Potassium 4.6 Chloride 82 L Carbon Dioxide 16 L Anion Gap 27.0 H BUN 46 H Creatinine 0.8 Estimated GFR (MDRD) 77 L Glucose 88 Calcium 8.6 Phosphorus 1.8 L Magnesium 2.7 Total Bilirubin 8.8 H AST 222 H ALT 52 Alkaline Phosphatase 949 H Ammonia 56.5 H Total Protein 6.1 L Albumin 2.4 L Globulin 3.7 Albumin/Globulin Ratio 0.6 L 05/03/21 21:29 WBC RBC Hgb Hct MCV MCH MCHC RDW Plt Count MPV Neut # (Auto) Lymph # (Auto) [place] # (Auto) Eos # (Auto) Baso # (Auto) Absolute Nucleated RBC Nucleated RBC % PT 18.6 H INR 1.7 H Sodium Potassium Chloride Carbon Dioxide Anion Gap BUN Creatinine Estimated GFR (MDRD) Glucose Calcium Phosphorus Magnesium Total Bilirubin AST ALT Alkaline Phosphatase Ammonia Total Protein Albumin Globulin Albumin/Globulin Ratio PD MEDICAL DECISION MAKING - ED course ED course: 50yo woman with known breast CA with mets to liver/ascites, now with clinical evidence of liver failure and encephalopathy with hyperammonemia causing sx of weakness and tiredness. Too weak to ambulate alone in the ED here. Labs showing elevated ammonia, low plt count, hepatitis with some obstructive pattern and worsening hyponatremia. Her acidosis is now subacute/better than prior. Dr Marroquin will admit. Departure - Departure Disposition: 66 [facility] DC/Xfer Clinical Impression: Metastatic disease, Ascites, Hepatic encephalopathy, Hyponatremia, Acidosis Condition: Stable
[2021-05-03 21:32] LABS: BASOPHILS # (AUTO) 0.1 10^3/uL (0.0-0.1); BASOPHILS % (AUTO) 0.8 %; EOSINOPHILS % (AUTO) 0.1 %; HGB - HEMOGLOBIN 12.3 g/dL (12.0-16.0); LYMPHOCYTES # (AUTO) 0.5 10^3/uL (1.5-3.5); LYMPHOCYTES % (AUTO) 3.9 %; MEAN CORPUSCULAR HEMOGLOBIN 34.9 pg (27.0-31.0); MEAN CORPUSCULAR HGB CONC 34.2 g/dL (32.0-36.0); MEAN CORPUSCULAR VOLUME 102.3 fL (81.0-99.0); MEAN PLATELET VOLUME 11.6 fL (7.9-10.8); MONOCYTES # (AUTO) 0.6 10^3/uL (0.0-1.0); MONOCYTES % (AUTO) 4.9 %; NEUTROPHILS # (AUTO) 10.4 10^3/uL (1.5-6.6); NEUTROPHILS % (AUTO) 89.2 %; PLT - PLATELET COUNT 91 10^3/uL (130-450); RED BLOOD COUNT 3.52 10^6/uL (4.20-5.40); RED CELL DISTRIBUTION WIDTH 18.6 % (12.0-15.0); WHITE BLOOD COUNT 11.7 x10^3/uL (4.8-10.8)
[2021-05-03 21:39] LABS: INR 1.7 (0.8-1.2); PT - PROTHROMBIN TIME 18.6 secs (9.9-12.6)
[2021-05-03] MEDS ORDERED: LACTULOSE 10 GM /15 ML UDC PO STA (22:00)
--- NOTE | 2021-05-03 22:14 | HISTORY & PHYSICAL EXAMINATION ---
Chief Complaint - Chief Complaint Chief Complaint: Confusion, dropping things, unsteady gait, ascites causing abd pain History of Present Illness - Admitted From Admitted From:: ED - History Obtained From History obtained from: ED provider, chart review and from the pt - History of Present Illness HPI Comment/Other: This is a 50-year-old white female with a history of asthma on prn albuterol. A right breast lump found in March 2020 and diagnosed with cancer and she had right-sided mastectomy and lymph nodes removed in April 2020, then had subsequent chemotherapy. She has unfortunately had spread of her cancer with metastases found in the liver and abdominal lymph nodes in Mar 2021. She had liver bx confirming mets from the breast CA. She has developed ascites and has needed two paracenteses, now is scheduled to get once weekly therapeutic paracentesis through [place] [facility] where she is followed by Dr Meka Ronquillo. Her last paracentesis was yesterday and 3L were removed. She has been refferred to Palliative Care and is to meet them on . She presented to the ED today with complaints of increased weakness since yesterday, and with abdominal pressure and back and abdominal pain upon standing. She complains of generalized weakness that is worsening, associated with some uncoordination and she drops things today. She is feeling very sleepy. Labs show an ammonia level of 55. Vital signs show that she is tachycardic with a heart rate of 112 and tachypneic with respiratory rate 28 and has fairly tense ascites. Patient was presented to the Hospitalist team for admission for treating hepatic encephalopathy with moderate confusion and ascites. We discussed her CODE BLUE wishes and she wants to be a Full Code and wants her "DPOA, her mother to decide" going forward. She has never filled out a POLST. History - Past Medical History Cardiovascular: reports: None Respiratory: reports: Asthma Neuro: reports: None Endocrine/Autoimmune: reports: None GI: reports: Chronic constipation (ever since she is on codeine for pain), Other (ascites) IRRIGATION ENGINEER: reports: Fibroids (removed in 2019) : reports: None HEENT: reports: Chronic vision loss Psych: reports: None Musculoskeletal: reports: None Derm: reports: None MRSA Hx?: No - Past Surgical History /IRRIGATION ENGINEER: reports: section, Hysterectomy, Mastectomy - Family & Social History Family History: Mother: Alive and Well, Father: Alive and Well Family History Comment/Other: 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 She moved in with her parents 1 week ago as she started to get sicker. She is , she has 1 child, a son who is 18, and over the past 1 week her son either lives alone (at his mom's house) or is with his dad. Patient has never smoked. The patient never drank alcohol. She uses no illicit drugs Living arrangement: At home Living Situation: With family - Substance History Use: Uses substance without health or social issues: NONE - POLST Patient has POLST: No Meds/Allgy - Home Medications Home Medications: Ambulatory Orders Medication Instructions Recorded Confirmed Albuterol Sulfate [Proair Hfa 1 - 2 puffs INH Q4H PRN 05/09/19 04/29/21 Inhaler] Lidocaine/Prilocain 2.5% Cream 5 applic TOP BID #1 tube 04/22/20 04/29/21 [Emla 2.5% Cream] oxyCODONE [Roxicodone] 5 mg PO Q4H PRN #30 tablet 10/28/20 04/29/21 Capecitabine [Xeloda] 2,500 mg PO DAILY 11/14/20 04/29/21 Oxycodone HCl [Roxicodone] 5 - 10 mg PO Q4HR PRN 04/30/21 04/30/21 - Allergies Allergies/Adverse Reactions: Allergies Allergy/AdvReac Type Severity Reaction Status Date / Time shellfish derived Allergy Anaphylaxis Verified 05/03/21 20:29 Review of Systems - Constitutional Constitutional: reports: Weakness, Poor appetite, Other (clumsiness) - Cardiovascular Cariovascular: reports: Edema (from liver failure, she has never been on a diuretic.) - Gastrointestinal Gastrointestinal: reports: Abdominal pain, Abdominal distention, Constipation, Poor appetite - All Other Systems All Other Systems: reports: Reviewed and negative Exam - Vital Signs Reviewed Vital Signs: Yes Vital Signs: Vital Signs x48h Temp Pulse Resp BP Pulse Ox 05/03/21 20:39 138/83 H 100 05/03/21 20:22 36.6 C 112 H 28 H 122/64 92 - Physical Exam General Appearance: positive: Mild distress (from abdominal distension and very swollen legs) Eyes Bilateral: positive: Normal inspection ENT: positive: Dry mucous membranes, Other (icteric sclerae) Neck: positive: Nml inspection Respiratory: positive: Breath sounds nml Cardiovascular: positive: Regular rate & rhythm, No murmur Abdomen: positive: Non-tender, Abnml bowel sounds (diminished), Other (Distended, positive fluid wave consistent with ascites, organs are not palpable) Skin: positive: Warm, Dry, Other (icteric) Extremities: positive: Other (4+ edema to hips and lower abdominal wall) Neurologic/Psychiatric: positive: Oriented x3, Other (Lethrgic, no nystagmus or asterixis) Conclusion/Plan - Problem List (1) Hepatic encephalopathy Conclusion/Plan: The patient will be admitted to Inpatient status given her confusion from encephalopathy, resting tachycardia and tachypnea (respiratory rate 28) which is likely due to ascites. Start lactulose, titrate to 3-4 bowel movements per day. Follow ammonia level daily. Begin a hepatic low-sodium diet. Monitor her ascites in case a therapeutic paracentesis is needed while she is here. We will begin with PT starting tomorrow so that she does not decondition excessively. (2) Ascites Conclusion/Plan: Monitor her ascites and her daily weight, in case a therapeutic paracentesis is needed while she is here. Will start oral Spironolactone Continue with her oxycodone for pain control however this is causing constipation. Will start the planned Lactulose which will promote bowel movements. Qualifiers: Ascites type: malignant Qualified Code(s): R18.0 - Malignant ascites (3) Hyponatremia Conclusion/Plan: This is likely hypervolemic hyponatremia. Will order Spironolactone and a Free water restriction BMP daily (4) Prerenal azotemia Conclusion/Plan: This is likely hepatorenal syndrome and not from dehydration given that the impression is that she is overall volume overloaded. Avoid nephrotoxins. Follow BMP daily (5) Breast cancer metastasized to liver Conclusion/Plan: As per Hx. Her LFTs and bili are very elevated. Follow LFTs daily. She is scheduled to meet with her new palliative care provider in 2 days, as an outpatient. She knows she will be discussing her goals of care and POLST then. If she is here beyond 2 days, we will request a palliative care consult for her as an inpatient. (6) Constipation Conclusion/Plan: Beginning the planned Lactulose will increase her BMs - Lab Results Fish Bones: 05/03/21 21:29 05/03/21 21:29 - Diagnostic Imaging Results Diagnostic Imaging Results: positive: Final report reviewed - Other Other Results/Comments: Attestation: The patient is expected to be discharged or transferred to another facility for 96 hours: Yes.
[2021-05-03] MEDS ORDERED: SODIUM CHLORIDE FLUSH 0.9% 10 ML SYRINGE IVP PRN (22:19)
[2021-05-03 22:40] LABS: ALBUMIN 2.4 g/dL (3.2-5.5); ALBUMIN/GLOBULIN RATIO 0.6 (1.0-2.2); BILIRUBIN,TOTAL 8.8 mg/dL (0.2-1.0); CALCIUM 8.6 mg/dL (8.5-10.3); CREATININE 0.8 mg/dL (0.4-1.0); MAGNESIUM 2.7 mg/dL (1.7-2.8); PHOSPHORUS 1.8 mg/dL (2.5-4.6); POTASSIUM 4.6 mmol/L (3.5-5.0); TOTAL PROTEIN 6.1 g/dL (6.7-8.2)
[2021-05-03 23:24] LABS: B. PARAPERTUSSIS- RESP PCR PAN NOT DETECTED; B. PERTUSSIS- RESP PCR PANEL NOT DETECTED; C. PNEUMONIAE- RESP PCR PANEL NOT DETECTED; CORONAVIRUS 229E-RESP PCR NOT DETECTED; CORONAVIRUS HKU1-RESP PCR NOT DETECTED; CORONAVIRUS NL63-RESP PCR NOT DETECTED; CORONAVIRUS OC43-RESP PCR NOT DETECTED; HUMAN METAPNEUMOVIRUS NOT DETECTED; INFLUENZA A- RESP PCR PANEL NOT DETECTED; INFLUENZA B - RESP PCR PANEL NOT DETECTED; M. PNEUMONIAE- RESP PCR PANEL NOT DETECTED; PARAINFLUENZA VIRUS 1 NOT DETECTED; PARAINFLUENZA VIRUS 2 NOT DETECTED; PARAINFLUENZA VIRUS 3 NOT DETECTED; PARAINFLUENZA VIRUS 4 NOT DETECTED; RHINOVIRUS/ENTEROVIRUS NOT DETECTED; RSV- RESP PCR PANEL NOT DETECTED; SARS-CoV-2 -RESP PCR PANEL NOT DETECTED
[2021-05-03] MEDS ORDERED: NON FORMULARY MED (Albuterol Sulfate [Proair Hfa Inhaler] 8.5 GM Hfa.Aer.Ad) INH PRN (23:36)
[2021-05-03] MEDS ORDERED: ALBUTEROL NEB 2.5 MG/3 ML INH PRN (23:58)
[2021-05-04] MEDS: SODIUM CHLORIDE FLUSH 0.9% 10 ML SYRINGE IVP SCH ×3 (01:30→15:22)
[2021-05-04] MEDS: oxyCODONE 5 MG TABLET PO PRN ×2 (02:34→15:21)
[2021-05-04] MEDS: ONDANSETRON 4 MG/2 ML VIAL IVP PRN ×2 (03:26→15:21)
[2021-05-04] MEDS: HYDROmorphone 1 MG/ML CARPUJECT IVP PRN ×2 (03:26→15:21)
[2021-05-04 05:28] LABS: BASOPHILS % (AUTO) 0.1 %; EOSINOPHILS % (AUTO) 0.1 %; HCT - HEMATOCRIT 33.9 % (37.0-47.0); HGB - HEMOGLOBIN 11.6 g/dL (12.0-16.0); LYMPHOCYTES % (AUTO) 3.7 %; MEAN CORPUSCULAR HEMOGLOBIN 35.4 pg (27.0-31.0); MEAN CORPUSCULAR HGB CONC 34.2 g/dL (32.0-36.0); MEAN CORPUSCULAR VOLUME 103.4 fL (81.0-99.0); MEAN PLATELET VOLUME 11.9 fL (7.9-10.8); MONOCYTES % (AUTO) 10.4 %; NEUTROPHILS % (AUTO) 83.8 %; PLT - PLATELET COUNT 91 10^3/uL (130-450); RED BLOOD COUNT 3.28 10^6/uL (4.20-5.40); RED CELL DISTRIBUTION WIDTH 18.5 % (12.0-15.0); WHITE BLOOD COUNT 17.7 x10^3/uL (4.8-10.8)
[2021-05-04 05:52] LABS: ABNORMAL LYMPHS % (MANUAL) 0 %
[2021-05-04 05:54] LABS: ALBUMIN 2.2 g/dL (3.2-5.5); ALBUMIN/GLOBULIN RATIO 0.6 (1.0-2.2); BILIRUBIN,TOTAL 8.5 mg/dL (0.2-1.0); CALCIUM 8.7 mg/dL (8.5-10.3); CREATININE 0.9 mg/dL (0.4-1.0); MAGNESIUM 2.7 mg/dL (1.7-2.8); PHOSPHORUS 2.6 mg/dL (2.5-4.6); POTASSIUM 4.9 mmol/L (3.5-5.0); TOTAL PROTEIN 5.8 g/dL (6.7-8.2)
[2021-05-04 06:35] LABS: BAND NEUTROPHILS % (MANUAL) 25 %; LYMPHOCYTES # (MANUAL) 1.1 10^3/uL (1.5-3.5); LYMPHOCYTES % (MANUAL) 6 %; MONOCYTES # (MANUAL) 2.1 10^3/uL (0.0-1.0); MYELOCYTES % (MANUAL) 1 %; NEUTROPHILS # (MANUAL) 14.3 10^3/uL (1.5-6.6)
[2021-05-04 06:36] LABS: DIFFERENTIAL COMMENT MANUAL DIFFERENTIAL; PLATELET ESTIMATE, MANUAL DECREASED (<130,000) (NORMAL)
--- NOTE | 2021-05-04 08:54 | XRAY Report ---
PROCEDURE: Chest 1 View X-Ray INDICATIONS: Short of breath TECHNIQUE: One view of the chest was acquired. COMPARISON: 04/22/2020. Correlation is also made with chest CT, 01/30/2021 FINDINGS: Surgical changes and devices: There is a stable left-sided chest port. Right mastectomy change is see n, with right axillary clips. Lungs and pleura: An incomplete inspiratory result is noted, with low lung volumes and crowding of t he vascular markings. No focal infiltrates are seen. No large pneumothorax or large pleural effusion can be seen. No pleural effusions or pneumothorax. Lungs are clear. Mediastinum: Mediastinal contours appear normal. Heart size is normal. Bones and chest wall: No suspicious bony lesions. Age-appropriate degenerative changes are seen. Overlying soft tissues appear unremarkable. IMPRESSION: Low lung volumes, without an acute abnormality identified. Postoperative and degenerative changes are seen. Reviewed by: Taurus Monet MD on 05/04/2021 7:[address] [facility] Approved by: Taurus Monet MD on 05/04/2021 7:[address] [facility] Station ID: [id number]
[2021-05-04] MEDS ORDERED: ALBUMIN 25% 12.5 GM/50 ML VIAL IV STA (08:59)
[2021-05-04] MEDS ORDERED: LACTULOSE 10 GM /15 ML UDC PO SCH (09:00)
[2021-05-04] MEDS ORDERED: iohexoL-300 100 ML VIAL IVP ONE (09:40)
--- NOTE | 2021-05-04 09:55 | CT Report ---
PROCEDURE: Abdomen/Pelvis W INDICATIONS: abdominal tenderness/pain, if peritonitis CONTRAST: IV CONTRAST: Isovue 300 ml: 100 PO CONTRAST: *NO PO CONTRAST TECHNIQUE: After the administration of IV contrast, 5 mm thick sections acquired from the diaphragms to the symp hysis. 5 mm thick coronal and sagittal reformats were acquired. For radiation dose reduction, the f ollowing was used: automated exposure control, adjustment of mA and/or kV according to patient size. COMPARISON: 04/16/2021, 01/30/2021 FINDINGS: Image quality: Excellent. ABDOMEN: Lung bases: Mild poorly defined opacities are seen at the right lung base. Heart size is normal. Rig ht mastectomy change is seen. Solid organs: Diffuse liver masses are again seen. The liver is prominent in size. The spleen demons trates normal size and demonstrates no suspicious lesions. Gallbladder demonstrates stable wall thickening Biliary system is non dilated. Pancreas enhances no rmally. No adrenal nodules. Kidneys demonstrate normal size and enhancement, without hydronephrosis . Peritoneum and bowel: Moderate ascites is seen. No free air is seen. There is generalized wall thic kening seen of the colon. No dilated loops of small bowel are seen. Nodes and vessels: No retroperitoneal or mesenteric adenopathy by size criteria. Aorta and inferior vena cava are normal in size. Miscellaneous: No ventral hernias. Mild generalized body wall edema can be seen. PELVIS: Genitourinary: Bladder wall thickness is normal. This patient is status post hysterectomy. No adnex al masses can be seen. Miscellaneous: No inguinal hernias or adenopathy. Bones: No suspicious bony lesions. No vertebral body compression fractures. IMPRESSION: There is moderate ascites. No loculated abscess collection is seen. No free air is seen. No significant focal bowel abnormality is identified. Generalized wall thickening is again seen in th e colon. Low-density masses are seen within the liver, which are attributed to metastatic disease. Mild opacities are seen at the right lung base, which are attributed to atelectasis. Differential [place] gnosis would also include infection and metastatic disease, yet these are considered to be less likel y. Generalized wall thickening is again seen of the gallbladder, which is nonspecific in this patient wi th ascites. If there is strong clinical concern for gallbladder pathology, please consider a focal ri ght upper quadrant ultrasound. Mild generalized body wall edema is seen. Incidental note is made of: Right mastectomy change Hysterectomy Reviewed by: Taurus Monet MD on 05/04/2021 8:54 AM [facility] Approved by: Taurus Monet MD on 05/04/2021 8:54 AM [facility] Station ID: [id number]
[2021-05-04] MEDS: SPIRONOLACTONE 25 MG TABLET PO SCH ×2 (10:11→15:13)
--- NOTE | 2021-05-04 14:10 | PROVIDER PROGRESS NOTE ---
Assessment/Plan - Problem List (1) Hepatic encephalopathy Assessment/Plan: 05/04 pt report she had first diagnosis of breast cancer on , then she had chemotherapy, and she had Hysterectomy , on Mar 2021 she was found to have ascites and Metastatic liver disease. her mental status is slightly improved. Ammonia level is at 50-60 arrange. we will continue Lactulose, titrate to 3-4 bowel movements per day, continue lab monitor (2) Ascites Conclusion/Plan: pt report her abdominal pain is controlled after she had pain meds. pt had elevated WBC. pt had recently Liver biopsy and paracentesis. CT of abdomen reveal no loculated abscess, no free air, no Significant focal bowel abnormality. pt does not present perotonitis clinically, but show low density masses which contributed to Metastatic disease, And moderate ascites. Patient does not present acute respiratory distress. Patient may continue follow-up with her scheduled paracentesis. lower albumin level order Albumin IV (3) Hyponatremia Conclusion/Plan: This is likely hypervolemic hyponatremia from Patient's metastatic liver disease continue Spironolactone and a Free water restriction, Continue clinical genetics laboratory chief (4) weakness Conclusion/Plan: Patient report poor appetite at home and weakness. Unfortunately patient had breast cancer with metastatic liver disease. We will continue physical therapist and occupational therapist, continue support for pt. (5) Breast cancer metastasized to liver Conclusion/Plan: Patient had a scheduled to see her oncologist on in the coming week, She hopes to continue to have chemotherapy. Patient also hopes to have palliative care. order the palliative care Called patient's mother Beatriz, updated pt's medical conditions, discussed disease prognosis and the care plan, answer her questions. She agree to have palliative care for patient (6) Constipation Conclusion/Plan: Beginning the planned Lactulose will increase her BMs - Current Meds Current Meds: Current Medications Generic Name Dose Route Start Last Admin Trade Name Freq PRN Reason Stop Dose Admin Hydromorphone HCl 1 mg 05/04/21 03:04 05/04/21 03:26 Hydromorphone 1 Mg/Ml Carpuject IVP 1 mg Q2HR PRN Administration PAIN Lactulose 10 gm 05/04/21 09:00 05/04/21 10:11 Lactulose 10 Gm /15 Ml Udc PO 10 gm BID VERNELL Administration Ondansetron HCl 4 mg 05/03/21 22:19 05/04/21 03:26 Ondansetron 4 Mg/2 Ml Vial IVP 4 mg Q6HR PRN Administration Nausea / Vomiting Oxycodone HCl 5 mg 05/03/21 23:36 05/04/21 02:34 Oxycodone 5 Mg Tablet PO 5 mg Q4H PRN Administration PAIN Sodium Chloride 10 ml 05/03/21 22:19 05/04/21 03:26 Sodium Chloride Flush 0.9% 10 Ml Syringe IVP 20 ml PRN PRN Administration NEEDED PER PROVIDER ORDERS Sodium Chloride 10 ml 05/04/21 01:00 05/04/21 10:13 Sodium Chloride Flush 0.9% 10 Ml Syringe IVP 10 ml 0100,0900,1700 VERNELL Administration Spironolactone 25 mg 05/04/21 08:00 05/04/21 10:11 Spironolactone 25 Mg Tablet PO 25 mg 0800,1400 VERNELL Administration - Lab Result Fish Bone Diagrams: 05/04/21 04:20 05/04/21 04:20 - Additional Planning My Orders: My Active Orders 05/04/21 Palliative Care Consult [CONS] Routine UA w/ MICROSCOPIC, CULT IF [URIN] Urgent Subjective - Subjective Patient Reports: Feeling Better Objective Vital Signs: Vital Signs - 24 hr 05/03/21 05/03/21 05/03/21 20:22 20:39 22:29 Temperature 36.6 C Heart Rate 112 H 112 H Heart Rate [ Radial] Respiratory 28 H 24 Rate Blood Pressure 122/64 138/83 H 109/99 H Blood Pressure [Left Brachial artery] O2 Saturation 92 100 100 05/03/21 05/03/21 05/04/21 22:37 23:45 04:24 Temperature 37.1 C 36.6 C Heart Rate 113 H Heart Rate [ 115 H 111 H Radial] Respiratory 25 H 20 20 Rate Blood Pressure 128/69 Blood Pressure 131/43 H 119/67 [Left Brachial artery] O2 Saturation 100 99 94 05/04/21 05/04/21 09:00 13:00 Temperature 36.6 C 36.6 C Heart Rate Heart Rate [ 103 H 103 H Radial] Respiratory 16 16 Rate Blood Pressure Blood Pressure 126/77 126/77 [Left Brachial artery] O2 Saturation 97 97 Oxygen O2 Source Room air I&O (Last 24 Hrs): Intake and Output Totals x24h 05/02/21 05/03/21 05/04/21 23:59 23:59 23:59 Intake Total 890 Output Total 775 Balance 115 General: Alert, Cooperative HEENT: Atraumatic Neck: Supple Lymphatic: no adenopathy Neuro: Alert, Non Focal Cardiovascular: Regular rate, Normal S1, Normal S2 Respiratory: Chest non-tender, No respiratory distress Abdomen: Normal bowel sounds, Soft Extremities: Normal pulses - Results Results: Laboratory Results WBC 17.7 x10^3/uL (4.8-10.8) H 05/04/21 04:20 RBC 3.28 10^6/uL (4.20-5.40) L 05/04/21 04:20 Hgb 11.6 g/dL (12.0-16.0) L 05/04/21 04:20 Hct 33.9 % (37.0-47.0) L 05/04/21 04:20 MCV 103.4 fL (81.0-99.0) H 05/04/21 04:20 MCH 35.4 pg (27.0-31.0) H 05/04/21 04:20 MCHC 34.2 g/dL (32.0-36.0) 05/04/21 04:20 RDW 18.5 % (12.0-15.0) H 05/04/21 04:20 Plt Count 91 10^3/uL (130-450) L 05/04/21 04:20 MPV 11.9 fL (7.9-10.8) H 05/04/21 04:20 Neut # (Auto) Not Reportable 05/04/21 04:20 Lymph # (Auto) Not Reportable 05/04/21 04:20 [place] # (Auto) Not Reportable 05/04/21 04:20 Eos # (Auto) Not Reportable 05/04/21 04:20 Baso # (Auto) Not Reportable 05/04/21 04:20 Absolute Nucleated RBC Not Reportable 05/04/21 04:20 Total Counted 100 05/04/21 04:20 Band Neuts % (Manual) 25 % (0-10) H 05/04/21 04:20 Abnorm Lymph % (Manual) 0 % 05/04/21 04:20 Myelocytes % 1 % (-0) H 05/04/21 04:20 Nucleated RBC % Not Reportable 05/04/21 04:20 Neutrophils # (Manual) 14.3 10^3/uL (1.5-6.6) H 05/04/21 04:20 Lymphocytes # (Manual) 1.1 10^3/uL (1.5-3.5) L 05/04/21 04:20 Monocytes # (Manual) 2.1 10^3/uL (0.0-1.0) H 05/04/21 04:20 Eosinophils # (Manual) 0.0 10^3/uL (0-0.7) 05/04/21 04:20 Basophils # (Manual) 0.0 10^3/uL (0-0.1) 05/04/21 04:20 Differential Comment MANUAL DIFFERENTIAL 05/04/21 04:20 Platelet Estimate DECREASED (<130,000) (NORMAL) 05/04/21 04:20 RBC Morph Micro Appear 1+ ANISOCYTOSIS (NORMAL) 1+ HYPOCHROMASIA (NORMAL) 1+ MACROCYTOSIS (NORMAL) 05/04/21 04:20 RBC Morph Micro Appear 1+ ANISOCYTOSIS (NORMAL) 1+ HYPOCHROMASIA (NORMAL) 1+ MACROCYTOSIS (NORMAL) 05/04/21 04:20 RBC Morph Micro Appear 1+ ANISOCYTOSIS (NORMAL) 1+ HYPOCHROMASIA (NORMAL) 1+ MACROCYTOSIS (NORMAL) 05/04/21 04:20 PT 18.6 secs (9.9-12.6) H 05/03/21 21:29 INR 1.7 (0.8-1.2) H 05/03/21 21:29 Sodium 126 mmol/L (135-145) L 05/04/21 04:20 Potassium 4.9 mmol/L (3.5-5.0) 05/04/21 04:20 Chloride 83 mmol/L (101-111) L 05/04/21 04:20 Carbon Dioxide 16 mmol/L (21-32) L 05/04/21 04:20 Anion Gap 27.0 (6-13) H 05/04/21 04:20 BUN 47 mg/dL (6-20) H 05/04/21 04:20 Creatinine 0.9 mg/dL (0.4-1.0) 05/04/21 04:20 Estimated GFR (MDRD) 67 (>89) L 05/04/21 04:20 Glucose 76 mg/dL (70-100) 05/04/21 04:20 Calcium 8.7 mg/dL (8.5-10.3) 05/04/21 04:20 Phosphorus 2.6 mg/dL (2.5-4.6) 05/04/21 04:20 Magnesium 2.7 mg/dL (1.7-2.8) 05/04/21 04:20 Total Bilirubin 8.5 mg/dL (0.2-1.0) H 05/04/21 04:20 AST 214 IU/L (10-42) H 05/04/21 04:20 ALT 46 IU/L (10-60) 05/04/21 04:20 Alkaline Phosphatase 885 IU/L (42-121) H 05/04/21 04:20 Ammonia 59.5 umol/L (7-35) H 05/04/21 04:20 Total Protein 5.8 g/dL (6.7-8.2) L 05/04/21 04:20 Albumin 2.2 g/dL (3.2-5.5) L 05/04/21 04:20 Globulin 3.6 g/dL (2.1-4.2) 05/04/21 04:20 Albumin/Globulin Ratio 0.6 (1.0-2.2) L 05/04/21 04:20 Nasal Adenovirus (PCR) NOT DETECTED 05/03/21 22:25 Nasal B. parapertussis DNA (PCR) NOT DETECTED 05/03/21 22:25 Nasal Coronavir 229E PCR NOT DETECTED 05/03/21 22:25 Nasal Coronavir HKU1 PCR NOT DETECTED 05/03/21 22:25 Nasal Coronavir NL63 PCR NOT DETECTED 05/03/21 22:25 Nasal Coronavir OC43 PCR NOT DETECTED 05/03/21 22:25 Nasal Enterovir/Rhinovir PCR NOT DETECTED 05/03/21 22:25 Nasal Influenza B PCR NOT DETECTED 05/03/21 22:25 Nasal Influenza A PCR NOT DETECTED 05/03/21 22:25 Nasal Parainfluen 1 PCR NOT DETECTED 05/03/21 22:25 Nasal Parainfluen 2 PCR NOT DETECTED 05/03/21 22:25 Nasal Parainfluen 3 PCR NOT DETECTED 05/03/21 22:25 Nasal Parainfluen 4 PCR NOT DETECTED 05/03/21 22:25 Nasal RSV (PCR) NOT DETECTED 05/03/21 22:25 Nasal B.pertussis DNA PCR NOT DETECTED 05/03/21 22:25 Nasal C.pneumoniae (PCR) NOT DETECTED 05/03/21 22:25 Jama Human Metapneumo PCR NOT DETECTED 05/03/21 22:25 Nasal M.pneumoniae (PCR) NOT DETECTED 05/03/21 22:25 Nasal SARS-CoV-2 (PCR) NOT DETECTED 05/03/21 22:25 - Procedures Procedures: Procedures EXCISION OF RIGHT AXILLARY LYMPHATIC, OPEN APPROACH (10/28/20) RESECTION OF BILATERAL FALLOPIAN TUBES, PERC ENDO APPROACH (05/10/19) RESECTION OF RIGHT BREAST, OPEN APPROACH (10/28/20) RESECTION OF UTERUS, PERCUTANEOUS ENDOSCOPIC APPROACH (05/10/19) ABX Reporting Has patient been on IV antibiotics over the past 48 hours?: No Current Medications - Current Medications Current Medications: Active Medications Albuterol (Albuterol Neb 2.5 Mg/3 Ml) 2.5 mg INH RTQ4H PRN PRN Reason: Wheezing, Shortness of breath Hydromorphone HCl (Hydromorphone 1 Mg/Ml Carpuject) 1 mg IVP Q2HR PRN PRN Reason: PAIN Last Admin: 05/04/21 03:26 Dose: 1 mg Lactulose (Lactulose 10 Gm /15 Ml Udc) 10 gm PO BID VERNELL Last Admin: 05/04/21 10:11 Dose: 10 gm Ondansetron HCl (Ondansetron 4 Mg/2 Ml Vial) 4 mg IVP Q6HR PRN PRN Reason: Nausea / Vomiting Last Admin: 05/04/21 03:26 Dose: 4 mg Oxycodone HCl (Oxycodone 5 Mg Tablet) 5 mg PO Q4H PRN PRN Reason: PAIN Last Admin: 05/04/21 02:34 Dose: 5 mg Sodium Chloride (Sodium Chloride Flush 0.9% 10 Ml Syringe) 10 ml IVP PRN PRN PRN Reason: NEEDED PER PROVIDER ORDERS Last Admin: 05/04/21 03:26 Dose: 20 ml Sodium Chloride (Sodium Chloride Flush 0.9% 10 Ml Syringe) 10 ml IVP 0100,0900,1700 [facility] Last Admin: 05/04/21 10:13 Dose: 10 ml Spironolactone (Spironolactone 25 Mg Tablet) 25 mg PO 0800,1400 [facility] Last Admin: 05/04/21 10:11 Dose: 25 mg Capecitabine [Xeloda] 2,500 mg PO DAILY 11/14/20 Oxycodone HCl [Roxicodone] 5 - 10 mg PO Q4HR PRN 04/30/21 Gabapentin [Neurontin] 300 mg PO BID 05/04/21
--- NOTE | 2021-05-04 15:08 | PHARMACY PROGRESS NOTE ---
- Best Possible Medication History Admit Date and Time: 05/03/21 Processed by: Pharmacy Medication History completed: Yes Patient Interview: Pt unable to participate Secondary Source(s): Insurance records As the person ultimately responsible for medication therapy, providers are able to order a medication from an existing home medication list in [facility] via the "Reconcile Routine" prior to Confirmation of that medication by community support worker. Such practice is discouraged except when the physician, in their clinical judgment, deems that a medical need exists for a medication without regard to previous use.
--- NOTE | 2021-05-04 18:26 | CT Report ---
PROCEDURE: HEAD WO INDICATIONS: AMS, if Metastatic disease TECHNIQUE: Noncontrast 4.5 mm thick angled axial sections acquired from the foramen magnum to the vertex. For r adiation dose reduction, the following was used: automated exposure control, adjustment of mA and/or kV according to patient size. COMPARISON: Reference is made to the MRI brain dated December 30, 2020. FINDINGS: BRAIN PARENCHYMA: Normal parenchymal density. No acute cortical based (large territory) infarction, i ntracranial hemorrhage, mass or mass effect, or abnormal fluid collection. The density in the larger dural venous sinuses is grossly normal. VENTRICLES: Normal in size, shape, and position. BONES/SINUSES: The skull base and calvarium demonstrate no acute abnormality. The paranasal sinuses a nd mastoid air cells are well aerated. IMPRESSION: 1.No acute intracranial abnormality. Postcontrast magnetic resonance imaging is more sensitive for metastatic disease. Reviewed by: Chidi Minaya MD on 05/04/2021 6:24 PM PST Approved by: Chidi Minaya MD on 05/04/2021 6:24 PM PST Station ID: [id number]
[2021-05-04] MEDS ORDERED: LACTULOSE 10 GM /15 ML UDC PR ONE (19:59)
[2021-05-05 01:24] LABS: ABG BASE EXCESS -19.1 mmol/L (-2.0-3.0); ABG HCO3 7.2 mmol/L (22.0-26.0); ABG OXYGEN SATURATION 89 % (94-98); ABG PO2 65 mmHg (80-100); ALLEN TEST POSITIVE
[2021-05-05 01:26] LABS: ABG PCO2 20 mmHg (34-45); ABG PH 7.18 (7.35-7.45); ABG TCO2 7.9 MMOL/L (21.0-29.0)
[2021-05-05] MEDS ORDERED: SODIUM BICARBONATE ABBOJECT 50 MEQ/50 ML SYRINGE IVP ONE ×2 (01:26→02:30)
[2021-05-05] MEDS: SODIUM CHLORIDE FLUSH 0.9% 10 ML SYRINGE IVP SCH ×2 (01:38→09:30)
[2021-05-05] MEDS ORDERED: SODIUM BICARBONATE 150 MEQ in DEXTROSE 5% 1,000 ML IV SCH (03:30)
[2021-05-05] MEDS ORDERED: SODIUM BICARBONATE 8.4% 50 MEQ/50 ML VIAL ONE (03:44)
[2021-05-05] MEDS ORDERED: DEXTROSE 5% 1,000 ML IV ONE (03:48)
[2021-05-05] MEDS ORDERED: SODIUM CHLORIDE 0.9% 500 ML IV ONE (04:02)
[2021-05-05] MEDS ORDERED: MEROPENEM 1 GM in SODIUM CHLORIDE 0.9% MINIBAG 100 ML IV SCH (04:31)
[2021-05-05 04:34] LABS: BASOPHILS % (AUTO) 0.1 %; EOSINOPHILS % (AUTO) 30.9 %; HCT - HEMATOCRIT 36.9 % (37.0-47.0); LYMPHOCYTES % (AUTO) 3.8 %; MEAN CORPUSCULAR HEMOGLOBIN 35.3 pg (27.0-31.0); MEAN CORPUSCULAR HGB CONC 32.5 g/dL (32.0-36.0); MEAN CORPUSCULAR VOLUME 108.5 fL (81.0-99.0); MEAN PLATELET VOLUME 12.2 fL (7.9-10.8); MONOCYTES % (AUTO) 6.8 %; NEUTROPHILS % (AUTO) 53.9 %; PLT - PLATELET COUNT 83 10^3/uL (130-450); RED CELL DISTRIBUTION WIDTH 19.2 % (12.0-15.0); WHITE BLOOD COUNT 17.9 x10^3/uL (4.8-10.8)
[2021-05-05 04:37] LABS: ABNORMAL LYMPHS % (MANUAL) 0 %
[2021-05-05 04:38] LABS: INR 1.8 (0.8-1.2); PT - PROTHROMBIN TIME 20.5 secs (9.9-12.6); VBG BASE EXCESS -18.5 mmol/L (-2 - +2); VBG HCO3 8.1 mmol/L (23-28); VBG PCO2 22.4 mmHg (41-51); VBG PH 7.174 (7.31-7.41); VBG PO2 56.5 mmHg (25-47); VBG TOTAL CO2 8.7 mmol/L (24-29)
--- NOTE | 2021-05-05 04:42 | PROVIDER PROGRESS NOTE ---
Cushion Maker Hand Note - Cushion Maker Hand Note Cushion Maker Hand Note: The patient was more somnolent throughout last night, a head CT had been performed in the late afternoon that showed no evidence of mets or intracerebral hemorrhage ABG was done when she was less alert that showed metabolic acidosis with pH 7.17, O2 sat 89%. The patient also had an overnight ammonia level done that was higher at 61. Overnight she got per rectum lactulose 20 g, and received bicarb 1 amp push, and was started on O2 per n.c. at 2L/min I was called to see the patient at 0400 when her blood pressure had dropped to 80/48, heart rate 126 in sinus tachycardia, afebrile but respiratory rate increased to 38 and FIO2 was increased to 8L to maintain saturation of 90%. The patient was in severe resp distress, grunting, comatose with no response to sternal rub, dolls eyes present, pupils sluggishly reactive, chest clear, heart tachy without rub or murmur, abdomen distended and more tense. Pt was moved to the ICU. Labs were done and a blood cx done. Bedside Echo was done that showed normal chamber sizes, normal LV and RV function and no pericardial effusion. Imp: Hepatic coma (Her JOSÉ MIGUEL score =13) Metabolic acidosis, possibly due to SBP Suspect septic shock Plan: Patient transferred to ICU Give saline 500 cc fluid bolus Start Dopamine Start bicarb drip, 1L Start empiric antibiotics using Meropenam 1g iv q8h for SBP. I called the mother Beatriz ([phone]) and updated her on the patient's critical condition. We discussed CODE STATUS and whether intubation and a ventilator could be used if needed. The mother asked what her underlying prognosis might be which is estimated at less than 1 year. The mother decided to make her daughter a DNR and DNI, and to let nature take its course. The mother and father will be allowed to visit the patient. (CRITICAL CARE TIME SPENT: 45 min)
[2021-05-05 04:46] LABS: ABG HCO3 7.4 mmol/L (22.0-26.0); ABG PO2 68 mmHg (80-100)
[2021-05-05 04:47] LABS: ABG BASE EXCESS -18.7 mmol/L (-2.0-3.0); ABG OXYGEN SATURATION 90 % (94-98); ALLEN TEST POSITIVE
[2021-05-05 04:49] LABS: ABG PCO2 20 mmHg (34-45); ABG PH 7.19 (7.35-7.45)
[2021-05-05 04:51] LABS: BAND NEUTROPHILS % (MANUAL) 9 %; LYMPHOCYTES # (MANUAL) 1.4 10^3/uL (1.5-3.5); LYMPHOCYTES % (MANUAL) 8 %; MONOCYTES # (MANUAL) 1.6 10^3/uL (0.0-1.0); MYELOCYTES % (MANUAL) 1 %; NEUTROPHILS # (MANUAL) 14.7 10^3/uL (1.5-6.6)
[2021-05-05 04:52] LABS: DIFFERENTIAL COMMENT MANUAL DIFFERENTIAL; PLATELET ESTIMATE, MANUAL DECREASED (<130,000) (NORMAL); PLATELET MORPHOLOGY NORMAL APPEARANCE (NORMAL); RBC MORPHOLOGY (MULTIPLE) 2+ ANISOCYTOSIS (NORMAL); WBC MORPHOLOGY (MULTIPLE) NORMAL APPEARANCE (NORMAL)
[2021-05-05] MEDS ORDERED: DOPamine 800 MG/500 ML 800 MG/500 ML BAG IV SCH (05:00)
[2021-05-05 05:22] LABS: ALBUMIN 2.6 g/dL (3.2-5.5); ALBUMIN/GLOBULIN RATIO 0.8 (1.0-2.2); BILIRUBIN,TOTAL 10.6 mg/dL (0.2-1.0); CALCIUM 8.7 mg/dL (8.5-10.3); CREATININE 1.6 mg/dL (0.4-1.0); POTASSIUM 5.5 mmol/L (3.5-5.0)
[2021-05-05] MEDS ORDERED: DEXTROSE 50% ABBOJECT 25 GM/50 ML SYRINGE IVP ONE (05:32)
[2021-05-05] MEDS ORDERED: DEXTROSE 5%-0.9% NACL 1,000 ML IV SCH (06:00)
--- NOTE | 2021-05-05 07:30 | PROVIDER PROGRESS NOTE ---
Assessment/Plan - Current Meds Current Meds: Current Medications Generic Name Dose Route Start Last Admin Trade Name Freq PRN Reason Stop Dose Admin Hydromorphone HCl 1 mg 05/04/21 03:04 05/04/21 15:21 Hydromorphone 1 Mg/Ml Carpuject IVP 1 mg Q2HR PRN Administration PAIN Sodium Bicarbonate 150 meq/ 1,150 mls @ 100 mls/hr 05/05/21 03:30 05/05/21 03:57 Dextrose IV 05/05/21 14:59 100 mls/hr .[id number] VERNELL Administration Meropenem 1 gm/ Sodium 100 mls @ 200 mls/hr 05/05/21 04:31 05/05/21 05:32 Chloride IV Infused Q8H VERNELL Infusion Dopamine HCl/Dextrose 800 mg in 500 mls @ 7.2 mls/hr 05/05/21 05:00 05/05/21 05:53 Dopamine IV 4 mcg/kg/min .[id number] VERNELL 14.4 mls/hr Titration Protocol 2 MCG/KG/MIN Dextrose/Sodium Chloride 1,000 mls @ 83.333 mls/hr 05/05/21 06:00 05/05/21 05:42 D5ns IV 83.333 mls/hr .Q12H VERNELL Administration Ondansetron HCl 4 mg 05/03/21 22:19 05/04/21 15:21 Ondansetron 4 Mg/2 Ml Vial IVP 4 mg Q6HR PRN Administration Nausea / Vomiting Oxycodone HCl 5 mg 05/03/21 23:36 05/04/21 15:21 Oxycodone 5 Mg Tablet PO 5 mg Q4H PRN Administration PAIN Sodium Chloride 10 ml 05/03/21 22:19 05/04/21 03:26 Sodium Chloride Flush 0.9% 10 Ml Syringe IVP 20 ml PRN PRN Administration NEEDED PER PROVIDER ORDERS Sodium Chloride 10 ml 05/04/21 01:00 05/05/21 01:38 Sodium Chloride Flush 0.9% 10 Ml Syringe IVP 10 ml 0100,0900,1700 VERNELL Administration Spironolactone 25 mg 05/04/21 08:00 05/04/21 15:13 Spironolactone 25 Mg Tablet PO 25 mg 0800,1400 VERNELL Administration - Lab Result Fish Bone Diagrams: 05/05/21 04:21 05/05/21 04:21 - Additional Planning My Orders: My Active Orders 05/05/21 07:22 Nasogastric [Insert NG Tube] [RC] ONCE Objective Vital Signs: Vital Signs - 24 hr 05/04/21 05/04/21 05/04/21 09:00 13:00 16:22 Temperature 36.6 C 36.6 C 37.1 C Heart Rate Heart Rate [ 103 H 103 H 116 H Radial] Respiratory 16 16 16 Rate Blood Pressure Blood Pressure 126/77 126/77 154/88 H [Left Brachial artery] O2 Saturation 97 97 96 05/04/21 05/04/21 05/05/21 19:41 23:58 02:00 Temperature 36.6 C 38.0 C H Heart Rate Heart Rate [ 115 H 120 H Radial] Respiratory 32 H 25 H 32 H Rate Blood Pressure Blood Pressure 149/86 H 126/68 132/82 H [Left Brachial artery] O2 Saturation 93 91 L 05/05/21 05/05/21 05/05/21 02:25 02:30 03:02 Temperature 36.4 C L 37.0 C Heart Rate Heart Rate [ 119 H 135 H 73 Radial] Respiratory 35 H 36 H Rate Blood Pressure Blood Pressure 108/59 L 103/53 L [Left Brachial artery] O2 Saturation 92 86 L 95 05/05/21 05/05/21 05/05/21 03:12 03:48 03:51 Temperature Heart Rate Heart Rate [ 73 Radial] Respiratory 38 H Rate Blood Pressure Blood Pressure 100/51 L 86/54 L 92/42 L [Left Brachial artery] O2 Saturation 97 05/05/21 05/05/21 05/05/21 04:02 04:05 04:10 Temperature Heart Rate 124 H 124 H 123 H Heart Rate [ Radial] Respiratory 35 H Rate Blood Pressure Blood Pressure [Left Brachial artery] O2 Saturation 05/05/21 05/05/21 05/05/21 04:11 04:12 04:13 Temperature Heart Rate 126 H 126 H 124 H Heart Rate [ Radial] Respiratory 35 H 35 H 37 H Rate Blood Pressure 146/109 H 151/138 H Blood Pressure [Left Brachial artery] O2 Saturation 05/05/21 05/05/21 05/05/21 04:14 04:15 04:16 Temperature Heart Rate 124 H 125 H 124 H Heart Rate [ Radial] Respiratory 38 H 39 H 37 H Rate Blood Pressure 81/36 L 80/48 L Blood Pressure [Left Brachial artery] O2 Saturation 05/05/21 05/05/21 05/05/21 04:17 04:20 04:25 Temperature 37.2 C Heart Rate 124 H 124 H 122 H Heart Rate [ 123 H Radial] Respiratory 38 H 37 H 37 H Rate Blood Pressure Blood Pressure 80/48 L [Left Brachial artery] O2 Saturation 90 L 05/05/21 05/05/21 05/05/21 04:30 04:31 04:32 Temperature Heart Rate 121 H 122 H Heart Rate [ Radial] Respiratory 36 H 38 H 32 H Rate Blood Pressure 91/56 L Blood Pressure [Left Brachial artery] O2 Saturation 05/05/21 05/05/21 05/05/21 04:35 04:40 04:44 Temperature Heart Rate 122 H 121 H 121 H Heart Rate [ Radial] Respiratory 36 H 37 H 38 H Rate Blood Pressure Blood Pressure [Left Brachial artery] O2 Saturation 05/05/21 05/05/21 05/05/21 04:45 04:46 04:50 Temperature Heart Rate 122 H 121 H 119 H Heart Rate [ Radial] Respiratory 37 H 37 H 35 H Rate Blood Pressure 89/50 L Blood Pressure [Left Brachial artery] O2 Saturation 05/05/21 05/05/21 05/05/21 04:55 04:59 05:00 Temperature Heart Rate 122 H 121 H 121 H Heart Rate [ 121 H Radial] Respiratory 37 H 36 H 37 H Rate Blood Pressure 103/66 Blood Pressure 85/56 L [Left Brachial artery] O2 Saturation 93 05/05/21 05/05/21 05/05/21 05:01 05:05 05:06 Temperature Heart Rate 122 H 121 H 123 H Heart Rate [ Radial] Respiratory 37 H 40 H 37 H Rate Blood Pressure 85/56 L Blood Pressure [Left Brachial artery] O2 Saturation 05/05/21 05/05/21 05/05/21 05:10 05:15 05:20 Temperature Heart Rate 122 H 122 H 122 H Heart Rate [ Radial] Respiratory 33 H 38 H 37 H Rate Blood Pressure Blood Pressure [Left Brachial artery] O2 Saturation 05/05/21 05/05/21 05/05/21 05:25 05:26 05:30 Temperature Heart Rate 122 H 123 H 122 H Heart Rate [ Radial] Respiratory 38 H 37 H 37 H Rate Blood Pressure 96/57 L Blood Pressure [Left Brachial artery] O2 Saturation 05/05/21 05/05/21 05/05/21 05:31 05:32 05:35 Temperature Heart Rate 121 H 122 H 121 H Heart Rate [ Radial] Respiratory 37 H 39 H 39 H Rate Blood Pressure 71/20 L Blood Pressure [Left Brachial artery] O2 Saturation 05/05/21 05/05/21 05/05/21 05:36 05:39 05:40 Temperature Heart Rate 122 H 123 H 124 H Heart Rate [ Radial] Respiratory 38 H 36 H 38 H Rate Blood Pressure 92/69 108/86 H Blood Pressure [Left Brachial artery] O2 Saturation 05/05/21 05/05/21 05/05/21 05:41 05:44 05:45 Temperature Heart Rate 124 H 121 H 121 H Heart Rate [ Radial] Respiratory 38 H 38 H 37 H Rate Blood Pressure 103/78 Blood Pressure [Left Brachial artery] O2 Saturation 05/05/21 05/05/21 05/05/21 05:46 05:50 05:51 Temperature Heart Rate 128 H 126 H 126 H Heart Rate [ Radial] Respiratory 39 H 38 H 39 H Rate Blood Pressure 70/23 L Blood Pressure [Left Brachial artery] O2 Saturation 05/05/21 05/05/21 05/05/21 05:54 05:55 06:00 Temperature Heart Rate 126 H 126 H Heart Rate [ 128 H Radial] Respiratory 39 H 38 H 39 H Rate Blood Pressure 96/77 Blood Pressure 123/82 H [Left Brachial artery] O2 Saturation 91 L 05/05/21 07:00 Temperature Heart Rate Heart Rate [ 131 H Radial] Respiratory 38 H Rate Blood Pressure Blood Pressure 146/86 H [Left Brachial artery] O2 Saturation 90 L Oxygen O2 Source Simple Mask I&O (Last 24 Hrs): Intake and Output Totals x24h 05/03/21 05/04/21 05/05/21 23:59 23:59 23:59 Intake Total 1130 606.66 Output Total 1225 160 Balance -95 446.66 - Results Results: Laboratory Results WBC 17.9 x10^3/uL (4.8-10.8) H 05/05/21 04:21 RBC 3.40 10^6/uL (4.20-5.40) L 05/05/21 04:21 Hgb 12.0 g/dL (12.0-16.0) 05/05/21 04:21 Hct 36.9 % (37.0-47.0) L 05/05/21 04:21 MCV 108.5 fL (81.0-99.0) H 05/05/21 04:21 MCH 35.3 pg (27.0-31.0) H 05/05/21 04:21 MCHC 32.5 g/dL (32.0-36.0) 05/05/21 04:21 RDW 19.2 % (12.0-15.0) H 05/05/21 04:21 Plt Count 83 10^3/uL (130-450) L 05/05/21 04:21 MPV 12.2 fL (7.9-10.8) H 05/05/21 04:21 Neut # (Auto) Not Reportable 05/05/21 04:21 Lymph # (Auto) Not Reportable 05/05/21 04:21 [place]born # (Auto) Not Reportable 05/05/21 04:21 Eos # (Auto) Not Reportable 05/05/21 04:21 Baso # (Auto) Not Reportable 05/05/21 04:21 Absolute Nucleated RBC Not Reportable 05/05/21 04:21 Total Counted 100 05/05/21 04:21 Band Neuts % (Manual) 9 % (0-10) 05/05/21 04:21 Abnorm Lymph % (Manual) 0 % 05/05/21 04:21 Myelocytes % 1 % (-0) H 05/05/21 04:21 Nucleated RBC % Not Reportable 05/05/21 04:21 Neutrophils # (Manual) 14.7 10^3/uL (1.5-6.6) H 05/05/21 04:21 Lymphocytes # (Manual) 1.4 10^3/uL (1.5-3.5) L 05/05/21 04:21 Monocytes # (Manual) 1.6 10^3/uL (0.0-1.0) H 05/05/21 04:21 Eosinophils # (Manual) 0.0 10^3/uL (0-0.7) 05/05/21 04:21 Basophils # (Manual) 0.0 10^3/uL (0-0.1) 05/05/21 04:21 Differential Comment MANUAL DIFFERENTIAL 05/05/21 04:21 WBC Morphology NORMAL APPEARANCE (NORMAL) 05/05/21 04:21 Platelet Estimate DECREASED (<130,000) (NORMAL) 05/05/21 04:21 Platelet Morphology NORMAL APPEARANCE (NORMAL) 05/05/21 04:21 RBC Morph Micro Appear 2+ ANISOCYTOSIS (NORMAL) 05/05/21 04:21 PT 20.5 secs (9.9-12.6) H 05/05/21 04:21 INR 1.8 (0.8-1.2) H 05/05/21 04:21 Bld Gas Analysis Time 0445 05/05/21 04:43 Sample Site RIGHT RADIAL 05/05/21 04:43 ABG pH 7.19 (7.35-7.45) L* 05/05/21 04:43 ABG pCO2 20 mmHg (34-45) L* 05/05/21 04:43 ABG pO2 68 mmHg (80-100) L 05/05/21 04:43 ABG HCO3 7.4 mmol/L (22.0-26.0) L 05/05/21 04:43 ABG Total CO2 8.0 MMOL/L (21.0-29.0) L* 05/05/21 04:43 ABG O2 Saturation 90 % (94-98) L 05/05/21 04:43 ABG Base Excess -18.7 mmol/L (-2.0-3.0) L 05/05/21 04:43 Hector Test POSITIVE 05/05/21 04:43 VBG pH 7.174 (7.31-7.41) L 05/05/21 04:21 VBG pCO2 22.4 mmHg (41-51) L 05/05/21 04:21 VBG pO2 56.5 mmHg (25-47) H 05/05/21 04:21 VBG HCO3 8.1 mmol/L (23-28) L 05/05/21 04:21 VBG Total CO2 8.7 mmol/L (24-29) L 05/05/21 04:21 VBG O2 Saturation 84.0 % (60-80) H 05/05/21 04:21 VBG Base Excess -18.5 mmol/L (-2 - +2) L 05/05/21 04:21 Room Air YES 05/05/21 01:15 O2 Delivery Device SIMPLE MASK 05/05/21 04:43 O2 Liters/Min 15.00 LPM 05/05/21 04:43 Sodium 130 mmol/L (135-145) L 05/05/21 04:21 Potassium 5.5 mmol/L (3.5-5.0) H 05/05/21 04:21 Chloride 82 mmol/L (101-111) L 05/05/21 04:21 Carbon Dioxide 9 mmol/L (21-32) L* 05/05/21 04:21 Anion Gap 39.0 (6-13) H 05/05/21 04:21 BUN 56 mg/dL (6-20) H 05/05/21 04:21 Creatinine 1.6 mg/dL (0.4-1.0) H 05/05/21 04:21 Estimated GFR (MDRD) 34 (>89) L 05/05/21 04:21 Glucose 59 mg/dL (70-100) L* 05/05/21 04:21 POC Whole Bld Glucose 122 mg/dL (70 - 100) H 05/05/21 06:08 Lactic Acid > 10.0 mmol/L (0.5-2.2) H* 05/05/21 05:30 Calcium 8.7 mg/dL (8.5-10.3) 05/05/21 04:21 Phosphorus 2.6 mg/dL (2.5-4.6) 05/04/21 04:20 Magnesium 2.7 mg/dL (1.7-2.8) 05/04/21 04:20 Total Bilirubin 10.6 mg/dL (0.2-1.0) H 05/05/21 04:21 AST 223 IU/L (10-42) H 05/05/21 04:21 ALT 48 IU/L (10-60) 05/05/21 04:21 Alkaline Phosphatase 932 IU/L (42-121) H 05/05/21 04:21 Ammonia 129.9 umol/L (7-35) H* 05/05/21 04:21 Troponin I High Sens 163.2 ng/L (2.3-14.8) H* 05/05/21 04:21 Total Protein 6.0 g/dL (6.7-8.2) L 05/05/21 04:21 Albumin 2.6 g/dL (3.2-5.5) L 05/05/21 04:21 Globulin 3.4 g/dL (2.1-4.2) 05/05/21 04:21 Albumin/Globulin Ratio 0.8 (1.0-2.2) L 05/05/21 04:21 Nasal Adenovirus (PCR) NOT DETECTED 05/03/21 22:25 Nasal B. parapertussis DNA (PCR) NOT DETECTED 05/03/21 22:25 Nasal Coronavir 229E PCR NOT DETECTED 05/03/21 22:25 Nasal Coronavir HKU1 PCR NOT DETECTED 05/03/21 22:25 Nasal Coronavir NL63 PCR NOT DETECTED 05/03/21 22:25 Nasal Coronavir OC43 PCR NOT DETECTED 05/03/21 22:25 Nasal Enterovir/Rhinovir PCR NOT DETECTED 05/03/21 22:25 Nasal Influenza B PCR NOT DETECTED 05/03/21 22:25 Nasal Influenza A PCR NOT DETECTED 05/03/21 22:25 Nasal Parainfluen 1 PCR NOT DETECTED 05/03/21 22:25 Nasal Parainfluen 2 PCR NOT DETECTED 05/03/21 22:25 Nasal Parainfluen 3 PCR NOT DETECTED 05/03/21 22:25 Nasal Parainfluen 4 PCR NOT DETECTED 05/03/21 22:25 Nasal RSV (PCR) NOT DETECTED 05/03/21 22:25 Nasal B.pertussis DNA PCR NOT DETECTED 05/03/21 22:25 Nasal C.pneumoniae (PCR) NOT DETECTED 05/03/21 22:25 Jama Human Metapneumo PCR NOT DETECTED 05/03/21 22:25 Nasal M.pneumoniae (PCR) NOT DETECTED 05/03/21 22:25 Nasal SARS-CoV-2 (PCR) NOT DETECTED 05/03/21 22:25 - Procedures Procedures: Procedures EXCISION OF RIGHT AXILLARY LYMPHATIC, OPEN APPROACH (10/28/20) RESECTION OF BILATERAL FALLOPIAN TUBES, PERC ENDO APPROACH (05/10/19) RESECTION OF RIGHT BREAST, OPEN APPROACH (10/28/20) RESECTION OF UTERUS, PERCUTANEOUS ENDOSCOPIC APPROACH (05/10/19)
--- NOTE | 2021-05-05 08:05 | XRAY Report ---
PROCEDURE: Chest 1 View X-Ray INDICATIONS: Oxygen desaturating TECHNIQUE: One view of the chest was acquired. COMPARISON: Chest x-ray 05/04/2019 left Port-A-Cath is unchanged. FINDINGS: Surgical changes and devices: None. Lungs and pleura: There is interval increased bilateral pulmonary opacities most severe in the bases and retrocardiac region. There is blunting of the costophrenic angles bilaterally. Mediastinum: Mediastinal contours appear normal. Heart size is enlarged. Bones and chest wall: No suspicious bony lesions. Overlying soft tissues appear unremarkable. IMPRESSION: Interval progression of bilateral pulmonary opacities most consistent with pneumonia. Underlying area s of edema cannot be excluded. Trace effusions are noted. Reviewed by: Mary Carmen Mcgregor MD on 05/05/2021 8:04 AM [facility] Approved by: Mary Carmen Mcgregor MD on 05/05/2021 8:04 AM [facility] Station ID: [id number]
[2021-05-05 08:12] VITALS: BP 158/73
[2021-05-05] MEDS ORDERED: LORazepam 2 MG/ML VIAL IVP PRN (08:50)
[2021-05-05] MEDS ORDERED: MORPHINE 2 MG/ML CARPUJECT IVP PRN (08:50)
[2021-05-05] MEDS ORDERED: LACTULOSE 10 GM /15 ML UDC PO SCH ×2 (09:00)
[2021-05-05] MEDS ORDERED: LACTULOSE 10 GM /15 ML UDC PR SCH (09:00)
[2021-05-05] MEDS ORDERED: rifAXIMin 550 MG TABLET PO SCH (09:00)
[2021-05-05] MEDS ORDERED: PANTOPRAZOLE 40 MG VIAL IVP SCH (09:00)
[2021-05-05] MEDS ORDERED: ALBUMIN 25% 12.5 GM/50 ML VIAL IV SCH (09:00)
[2021-05-05] MEDS ORDERED: FUROSEMIDE 20 MG/2 ML VIAL IVP SCH (10:00)
--- NOTE | 2021-05-05 12:33 | DISCHARGE SUMMARY ---
Discharge Summary Admit Date: 05/03/21 Discharge Date: 05/05/21 Discharging Provider: Dallin Davidtvanda Code Status: Do Not Attempt Resuscitation Condition at Discharge: Critical Discharge Disposition: 20 - DIAGNOSES Admission Diagnoses: Hepatic encephalopathy Ascites Hyponatremia Prerenal azotemia Breast cancer metastatic to liver Constipation Discharge Diagnoses with Status of Each Condition: Hepatic coma: Patient Septic shock: Patient Ascites: Patient Hyponatremia: Patient Prerenal azotemia: Patient Breast cancer metastatic to liver: Patient Constipation: Patient - HPI History of Present Illness: This is a 50-year-old white female with a history of asthma on prn albuterol. A right breast lump found in March 2020 and diagnosed with cancer and she had right-sided mastectomy and lymph nodes removed in April 2020, then had subsequent chemotherapy. She has unfortunately had spread of her cancer with metastases found in the liver and abdominal lymph nodes in Mar 2021. She had liver bx confirming mets from the breast CA. She has developed ascites and has needed two paracenteses, now is scheduled to get once weekly therapeutic paracentesis through the [facility] [place], where she is followed by Dr Meka Ronquillo. Her last paracentesis was yesterday and 3L were removed. She has been refferred to Palliative Care and is to meet them on . She presented to the ED today with complaints of increased weakness since yesterday, and with abdominal pressure and back and abdominal pain upon standing. She complains of generalized weakness that is worsening, associated with some uncoordination and she drops things today. She is feeling very sleepy. Labs show an ammonia level of 55. Vital signs show that she is tachycardic with a heart rate of 112 and tachypneic with respiratory rate 28 and has fairly tense ascites. Patient was presented to the Hospitalist team for admission for treating hepatic encephalopathy with moderate confusion and ascites. We discussed her CODE BLUE wishes and she wants to be a Full Code and wants her "DPOA, her mother to decide" going forward. She has never filled out a POLST. - HOSPITAL COURSE Hospital Course: Patient was admitted to the [facility] floor and started on lactulose with a plan to titrate to 3-4 bowel movements per day. By the evening of 05/04/2021 patient's mentation had worsened. She was evaluated and treated at night by the Overnight physician as below: The patient was more somnolent throughout last night, a head CT had been perf ormed in the late afternoon that showed no evidence of mets or intracerebral hemorrhage ABG was done when she was less alert that showed metabolic acidosis with pH 7.17, O2 sat 89%. The patient also had an overnight ammonia level done that was higher at 61. Overnight she got per rectum lactulose 20 g, and received bicarb 1 amp push, and was started on O2 per n.c. at 2L/min I was called to see the patient at 0400 when her blood pressure had dropped to 80/48, heart rate 126 in sinus tachycardia, afebrile but respiratory rate increased to 38 and FIO2 was increased to 8L to maintain saturation of 90%. The patient was in severe resp distress, grunting, comatose with no response to sternal rub, dolls eyes present, pupils sluggishly reactive, chest clear, heart tachy without rub or murmur, abdomen distended and more tense. Pt was moved to the ICU. Labs were done and a blood cx done. Bedside Echo was done that showed normal chamber sizes, normal LV and RV function and no pericardial effusion. Imp: Hepatic coma (Her JOSÉ MIGUEL score =13) Metabolic acidosis, possibly due to SBP Suspect septic shock Plan: Patient transferred to ICU Give saline 500 cc fluid bolus Start Dopamine Start bicarb drip, 1L Start empiric antibiotics using Meropenam 1g iv q8h for SBP. I called the mother Beatriz ([phone]) and updated her on the patient's critical condition. We discussed CODE STATUS and whether intubation and a ventilator could be used if needed. The mother asked what her underlying prognosis might be which is estimated at less than 1 year. The mother decided to make her daughter a DNR and DNI, and to let nature take its course. The mother and father will be allowed to visit the patient. Upon arrival to bedside this morning, the patient was unresponsive to tactile or verbal stimuli. She appeared to be actively dying. She was tachycardic. Heart rate was in the 120s with occasional arrhythmias. She was tachypneic with respiratory rate in the 30s and oxygen saturation between 87 and 91% despite 15 L on an oxygen mask. She appeared jaundiced. Restless/ agonal respirations The patient's mother and father were at bedside. I had a conversation with them highlighting my concern that she was actively dying. At the time she was on a bicarbonate and dopamine drip. I advised that in the absence of the measures currently ongoing my suspicion was that she would only last a couple of hours. At that point the family was agreeable with just keeping her comfortable. As a result all drips were discontinued. About 1 hours later it was brought to my attention that the patient was unresponsive and appeared not to be breathing. Upon arrival to bedside once more there was no response to tactile or verbal stimuli. Carotid and radial pulses were absent bilaterally. There was no spontaneous breath. Heart and breath sounds with absent on auscultation. Pupils were fixed, dilated and unreactive to light. Patient was pronounced on 05/05/2021 at 10:04 AM. Her father and mother were at bedside. - ALLERGIES Allergies/Adverse Reactions: Allergies Allergy/AdvReac Type Severity Reaction Status Date / Time shellfish derived Allergy Anaphylaxis Verified 05/03/21 20:29 - MEDICATIONS Home Medications: Ambulatory Orders Medication Instructions Recorded Confirmed Lidocaine/Prilocain 2.5% Cream 5 applic TOP BID #1 tube 04/22/20 05/04/21 [Emla 2.5% Cream] Capecitabine [Xeloda] 2,500 mg PO DAILY 11/14/20 05/04/21 Oxycodone HCl [Roxicodone] 5 - 10 mg PO Q4HR PRN 04/30/21 05/04/21 Gabapentin [Neurontin] 300 mg PO BID 05/04/21 05/04/21 - LABS Result Diagrams: 05/05/21 04:21 05/05/21 04:21 - TIME SPENT Time Spent in Discharge (Minutes): 25
--- NOTE | 2021-05-05 12:34 | Discharge Plan ---
Discharge Plan Problem Reviewed?: Yes Disposition: 20 Condition: Critical No Smoking: If you smoke, Please STOP! Call for help. Follow-up with: Talia Wright DO [Primary Care Provider] -
== END 2021-05-05 10:04 | disposition expired | DRG 441 ==
LOC: ED 20:17 → MS3 22:19 → ICU 05-05 04:12
PROVIDERS: ADMIT Internal Medicine; ATTEND Internal Medicine
DX: K72.91 Hepatic failure, unspecified with coma (principal); R65.21 Severe sepsis with septic shock; R18.8 Other ascites; E87.1 Hypo-osmolality and hyponatremia; C78.7 Secondary malignant neoplasm of liver and intrahepatic bile duct; C77.2 Secondary and unspecified malignant neoplasm of intra-abdominal lymph nodes; E87.2 Acidosis; R79.89 Other specified abnormal findings of blood chemistry; C50.911 Malignant neoplasm of unspecified site of right female breast; Z66 Do not resuscitate; R26.81 Unsteadiness on feet; J45.909 Unspecified asthma, uncomplicated; Z90.11 Acquired absence of right breast and nipple; R53.1 Weakness; K59.03 Drug induced constipation; T40.2X5A Adverse effect of other opioids, initial encounter; Y92.9 Unspecified place or not applicable; E87.79 Other fluid overload; Z20.822 Contact with and (suspected) exposure to COVID-19
CPT/HCPCS: 0202U; 36415; 36600; 70450; 71045; 74177; 80053; 82140; 82803; 83605; 83735; 84100; 84484; 85025; 85610; 87040; 87150; 97162; 97530; 99284; 99285; A9270; J1170; J2185; P9047; Q9967; 80048